=== PATIENT | male | born 1980 | race Caucasian/White ===

== ENCOUNTER 2017-11-01 18:03 | Emergency (ER) | payer BC ==
[2017-11-01 18:46] VITALS: BP 117/85
--- NOTE | 2017-11-01 19:57 | UC ---
Throat Pain/Nasal Daryn HPI - HPI Summary HPI Summary: Pt c/o sinus pressure and pain X 10 days. - History of Current Complaint Chief Complaint: UCGeneralIllness Stated Complaint: SINUS Time Seen by Provider: 11/01/17 19:52 Hx Obtained From: Patient Onset/Duration: Gradual Onset, Lasting Days - 10 Severity: Mild Pain Intensity: 4 Associated Signs & Symptoms: Positive: Sinus Discomfort - Epiglottits Risk Factors Epiglottis Risk Factors: Negative - Allergies/Home Medications Allergies/Adverse Reactions: Allergies Allergy/AdvReac Type Severity Reaction Status Date / Time No Known Allergies Allergy Verified 11/01/17 18:40 Home Medications: Home Medications Insulin Degludec [Tresiba Flextouch U-200] 200 unit SUBCUT DAILY 11/01/17 [ History Confirmed 11/01/17] PMH/Surg Hx/FS Hx/Imm Hx Previously Healthy: Yes Endocrine History: Diabetes - Surgical History Surgical History: Yes Surgery Procedure, Year, and Place: Ankle surgery, 2012. TESTICULAR TORSION 20 YRS AGO - Family History Known Family History: Positive: Cardiac Disease - Social History Occupation: Employed Full-time Lives: With Family Alcohol Use: Occasionally Substance Use Type: None Smoking Status (MU): Never Smoked Tobacco Have You Smoked in the Last Year: No Review of Systems Constitutional: Fatigue Skin: Negative Eyes: Negative ENT: Sinus Congestion, Sinus Pain/Tenderness Respiratory: Negative Cardiovascular: Negative Gastrointestinal: Negative Genitourinary: Negative Motor: Negative Neurovascular: Negative Musculoskeletal: Negative Neurological: Headache Psychological: Negative Is Patient Immunocompromised?: No All Other Systems Reviewed And Are Negative: Yes Physical Exam Triage Information Reviewed: Yes Appearance: Ill-Appearing Vital Signs: Initial Vital Signs Temp 98.2 F 11/01/17 18:38 Pulse 84 11/01/17 18:38 Resp 20 11/01/17 18:38 BP 117/85 11/01/17 18:38 Pulse Ox 99 11/01/17 18:38 Vital Signs Reviewed: Yes Eye Exam: Normal ENT Exam: Other ENT: Positive: Nasal congestion, Sinus tenderness Neck exam: Normal Respiratory Exam: Normal Cardiovascular Exam: Normal Musculoskeletal Exam: Normal Neurological Exam: Normal Psychological Exam: Normal Skin Exam: Normal Throat Pain/Nasal Course/Dx - Differential Dx/Diagnosis Differential Diagnosis/HQI/PQRI: Sinusitis, URI Provider Diagnoses: Sinusitis Discharge - Sign-Out/Discharge Documenting (check all that apply): Discharge - Discharge Plan Condition: Stable Disposition: HOME Prescriptions: Amoxicillin PO (*) [Amoxicillin 875 MG (*)] 875 mg PO Q12H #20 tab Patient Education Materials: Sinusitis (ED) Referrals: Buster Corrales DO [Primary Care Provider] - If Needed - Billing Disposition and Condition Condition: STABLE Disposition: HOME
== END 2017-11-01 20:10 | disposition home or self-care (01) ==
LOC: UCCORT 18:03
DX: J32.9 Chronic sinusitis, unspecified (principal)
CPT/HCPCS: 99212; G0463

== ENCOUNTER 2018-07-29 18:42 | Emergency (ER) | payer BC ==
--- OUTSIDE RECORDS SUMMARY | 2018-07-29 19:05 | XMS REPORT | Continuity of Care Document ---
:1980 External Reference #:[id number] Author Name AntoniEdaew Address [address] [place] [address] Care Team Providers Name Role Phone Buster Corrales Primary Care Physician Unavailable Payers Type Date Identification Numbers Payment Provider Subscriber Policy Number: [id number] [facility] Bret Brooks Group Number: [id number] [address] PayID: [id number] [place] [address] Advance Directives Description No Information Available Problems Date Description Provider Status Onset: 10/13/2005 Benign essential hypertension Michelle Merida MD Active Onset: 10/13/2005 Precordial pain Michelle Merida MD Active Onset: 10/27/2005 Adult health examination Michelle Merida MD Active Onset: 10/27/2005 Allergic rhinitis Michelle Merida MD Active Onset: 08/05/2006 Acute pharyngitis Michelle Merida MD Active Onset: 05/28/2009 Eruption Michelle Merida MD Active Onset: 04/04/2012 Type 2 diabetes mellitus Ramon Harper DO Active Onset: 09/27/2012 Type II diabetes mellitus Ramon Harper DO Active uncontrolled Onset: 09/27/2012 Morbid obesity Ramon Harper DO Active Onset: 04/04/2014 Gout Ramon Harper DO Active Onset: 04/04/2014 Mixed hyperlipidemia Ramon Harper DO Active Onset: 05/22/2014 Disorder of gallbladder Ramon Harper DO Active Onset: 05/22/2014 Obesity Ramon Harper DO Active Onset: 10/16/2014 Pure hypercholesterolemia Chente Oneil DO Active Onset: 07/28/2015 Essential hypertension Chente Oneil DO Active Onset: 08/03/2016 Rosacea Chente Oneil DO Active Family History Date Family Member(s) Problem(s) Comments General Diabetes, Adult General Stroke General Heart Disease Father 50 Father Diabetes, Adult Father Heart Disease Mother 50 Mother Arrythmia ON A BETA MARCELLA Children None Siblings 2 Siblings A&W Paternal Grandfather Hemochromatosis Social History Type Date Description Comments Sex Unknown Education Highest Level Completed, Associated Degree Marital Status Lives With Spouse Diet Healthy, Well Balanced Occupation Cinema Operator [employer] Hand Dominance RIGHT-handed Advance Directive Negative For Health Care Proxy Hobbies Martial Arts Tobacco Use Start: Unknown Never Smoked Cigarettes Smokeless Tobacco Quit - Age 28 PRIOR 7-8 YRS ETOH Use Currently consumes alcohol ETOH Use as Above Enjoy Exercising Enjoys Exercising Enjoy Exercising Runs And Does Martial Arts Frequently Sun Exposure Uses sunscreen Seat Belt/Car Seat always uses seat belt Bike Helmet Always Allergies, Adverse Reactions, Alerts Description No Known Drug Allergies Medications Medication Date Status Form Strength Qnty SIG Indications Ordering Provider Novofine 04/04 Active Misc 30G X 8 100un use as directed Antoni Autoc mm its Buster, DO Rosuvastatin 11/22 Active Tablets 10mg 90tab take 1 tablet E78.2 Antoni s by mouth once Buster, daily DO Tresiba 03/16 Active Solution 200Unit/M 12pen inject 90 units E11.65 Antoni Flextouch Pen-Injec L s subcutaneously claudia Goins at bedtime. DO Please give 3 month supply Metformin HCL 03/12 Active Tablets 1000mg 180ta 1 by mouth E11.65 Antoni bs twice a day DO Buster Syntha 6 10/16 Active 1 Scoop Daily Clarice, (Protein With Water. Chente, Powder) DO Lisinopril 04/18 Active Tablets 30mg 90tab take 1 tablet I10 Antoni s by mouth once Buster, daily DO E11.65 Freestyle Lancets 12/16/2010 Active 1Box test twice a Meredith, day and as DO Ramon needed dx 250.02 Freestyle Lite 12/07/2010 Active 100un test bid and 250. Edinger, Test Strips its prn 00 [facility] Amoxicillin/Clavul 06/15/2017 Hx Tablets 500 20tab 1 by mouth Clarice, anate Potassium - -12 s twice a day Chente, DO 06/25/2017 5mg Metronidazole 10/27/2015 Hx Gel 1% 60gm Apply Thin Film L71. Clarice, - To Face Q Am 9 Chente, DO 06/14/2017 Azithromycin 07/28/2015 Hx Tablets 500 7tabs 1 by mouth Clarice, - mg every day Chente, DO 10/27/2015 Novofine 05/15/2014 Hx Misc 30G 100un use as directed Clarice, - X 8 its Chente, DO 04/04/2018 mm Janumet XR 04/18/2014 Hx Tablets 50- 180ta 1 by mouth Clarice, - ER 24HR 500 bs twice a day Chente DO 03/12/2015 mg Crestor 04/18/2014 Hx Tablets 10m 90tab 1 by mouth E78. Clarice, - g s every day 2 Chente DO 11/22/2016 Atorvastatin 10/29/2012 Hx Tablets 20m 30tab 1 po qd Meredith, Calcium - g s Ramon, DO 04/04/2014 Hydrocortisone 09/27/2012 Hx Ointment 0.1 45gm apply twice a 691. Meredith, Butyrate - % day - 10 8 Ramon, DO 04/04/2014 Metformin HCL ER 08/29/2012 Hx Tablets 100 30tab 1 po qday Meredith , - ER 24HR 0mg s Ramon, DO 08/29/2012 Januvia 08/29/2012 Hx Tablets 100 30tab take 1 tablet Meredith, - mg s by mouth once Ramon, DO 04/18/2014 daily Allopurinol 08/28/2012 Hx Tablets 100 30tab take 1 tablet Meredith, - mg s by mouth once Ramon, DO 04/18/2014 daily Lisinopril 06/06/2012 Hx Tablets 20m 30tab take 1 tablet Meredith, - g s by mouth once Ramon, DO 04/18/2014 daily Out Of Work 01/13/2011 Hx from 01/02-01/05 Samantha, - MD [facility] 04/03/2012 Lisinopril 01/05/2011 Hx Tablets 10m 30tab 1 po qd Laverne Harper g hang Navarro DO 06/06/2012 Allopurinol 12/29/2010 Hx Tablets 100 60tab 2 po qd Meredith, - mg s Ramon, DO 08/28/2012 Lisinopril 12/17/2010 Hx Tablets 5mg 30tab 1 po qd Laverne Singh MD 01/05/2011 Metformin HCL ER 12/07/2010 Hx Tablets 500 60tab Take 1000 250. Meredith, - ER 24HR mg s MG/Day 00 Ramon, DO 08/29/2012 Augmentin 11/11/2010 Hx Tablets 875 20tab 1 po bid Olrich, - -12 s KATH Davis 12/07/2010 5mg Omeprazole 11/01/2010 Hx Capsules 40m 30cap 1 po qd 535. Laverne Singh DR s 00 MD [facility] 04/03/2012 Transderm-Scop 10/29/2010 Hx Patches 1.5 3unit use one patch q 994. Samantha, Laverne 72HR mg s 3 days 6 MD [facility] 11/11/2010 Ondansetron HCL 10/29/2010 Hx Tablets 8mg 8tabs 1 po q12 hrs 994. Samantha, - prn 6 [facility] 11/11/2010 Meclizine HCL 10/13/2010 Hx Tablets 12. 30tab 1-2 tabs q8h 386. Samantha , - 5mg s prn 30 [facility] 11/11/2010 Azithromycin 08/04/2010 Hx Tablets 250 6tabs 2 po qd x 1 day 466. Samantha, - mg then 1 po qd x 0 [facility] 11/11/2010 4 days Doxycycline 12/30/2009 Hx Capsules 100 60cap 1 po bid 601. Steve Oropezaclate - mg s 9 Arpan Sepulveda 11/11/2010 Allopurinol 12/10/2009 Hx Tablets 100 30tab 1 po qd Laverne Singh MD 11/11/2010 Indomethacin 12/04/2009 Hx Capsules 50m 30cap 1 po bid 716. Laverne Singh g s 88 MD [facility] 12/30/2009 Ciprofloxacin HCL 11/24/2009 Hx Tablets 500 60tab 1 po bid 601. Laverne Singh mg s 9 [facility] 12/30/2009 Metronidazole 10/23/2009 Hx Lotion 0.7 59ml apply to 695. Laverne Singh 5% affected area 3 MD [facility] 11/11/2010 bid Famciclovir 05/28/2009 Hx Tablets 500 14tab 1 po bid 782. Fuad, - mg s 1 MD Michelle 12/30/2009 Amoxicillin 01/06/2009 Hx Tablets 875 20tab 1 po bid 462 Fuad, - mg s MD Michelle 05/28/2009 Levitra 12/27/2006 Hx Tablets 10m 6tabs 1-2 PO 15 V41. Laverne Singh g Minutes Prior 7 MD [facility] 01/06/2009 To Sexual Activity. Semen Analysis 11/22/2006 Hx abstain from 401. Laverne Merida ejaculation for 1 MD Michelle 01/06/2009 3D prior to test Fexofenadine 10/02/2006 Hx Tablets 180 90tab 1 po qd 477. Fuad, - mg s 9 MD Michelle 01/06/2009 Augmentin 08/05/2006 Hx Tablets 875 20tab 1 po bid 462 Fuad, - mg s MD Michelle 10/02/2006 Hydrochlorothiazid 05/08/2006 Hx Capsules 12. 90cap 1 tab po qam 401. carla Merida - 5mg s 1 MD Michelle 12/27/2006 Lisinopril 05/08/2006 Hx Tablets 5mg 90tab 1 PO qd 401. Laverne Merida s 1 MD Michelle 01/06/2009 X 11/17/2005 Hx please do Laverne Merida cardiolite MD Michelle 11/17/2005 stress test and fax results to . [id number] pain precordial. Hydrochlorothiazid 10/27/2005 Hx Tablets 50m 30tab 1 po qd 401. Fuad e - g s 1 MD Michelle 05/08/2006 Reanna 10/27/2005 Hx Tablets 180 30tab 1 po qd 477. Fuad, - mg s 9 MD Michelle 10/02/2006 Nasacort Aq 10/27/2005 Hx Suspensio 55m 15ml one spray in 477. Fuad Intranasal [place] - n cg/ each nostril 9 MD Michelle 10/02/2006 Act daily uat ion Whey Protein 10/13/2005 Hx Laverne Merida MD 10/02/2006 Multivitamins 10/13/2005 Hx Tablets 30tab 1 PO qd Laverne Merida MD 01/06/2009 Hydrochlorothiazid 10/13/2005 Hx Tablets 25m 30tab 1 po qd 401. jesús Merida 1 MD Michelle 10/27/2005 Aspirin Enteric 10/13/2005 Hx Tablets 81m 1 PO qd 401. Tabitha Merida 1 MD Michelle 01/06/2009 Lantus Solostar Hx Solution 100 30uni inject Clarice, - Pen-Injec Uni ts subcutaneously Chente, DO 06/16/2016 t t/M 40 units twice L a day Immunizations CPT Code Status Date Vaccine Reaction Lot # [id number] Given 04/24/2018 Flu Vaccine NOS Pt says he got his flu shot at work. 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 [id number] Given 07/01/2014 Fluzone Trivalent Immunization [id number] Given 03/20/2007 Tdap (Adacel) Ages 7 And Above Only 13101 Given 03/20/2007 Tdap (Adacel) Ages 7 And [id number] Above Only Vital Signs Date Vital Result Comment 07/12/2018 8:07am Weight 242.00 lb Heart Rate 80 /min BP Systolic 130 mmHg BP Diastolic 84 mmHg Respiratory Rate 16 /min Height 69.5 inches 5'9.50" BMI (Body Mass Index) 35.2 kg/m2 04/04/2018 8:04am Body Temperature 97.9 F Weight 246.00 lb Heart Rate 82 /min BP Systolic 124 mmHg BP Diastolic 78 mmHg Respiratory Rate 18 /min 12/28/2017 3:53pm Weight 245.00 lb Heart Rate 94 /min BP Systolic 128 mmHg BP Diastolic 82 mmHg Respiratory Rate 17 /min Height 69.5 inches 5'9.50" BMI (Body Mass Index) 35.7 kg/m2 09/27/2017 3:22pm Weight 243.00 lb Heart Rate 86 /min BP Systolic 120 mmHg BP Diastolic 76 mmHg Respiratory Rate 18 /min Height 69.5 inches 5'9.50" BMI (Body Mass Index) 35.4 kg/m2 06/15/2017 8:13am Weight 243.00 lb Heart Rate 80 /min 80 Reg BP Systolic 116 mmHg BP Diastolic 74 mmHg BP Systolic Recheck 112 mmHg BP Diastolic Recheck 78 mmHg Respiratory Rate 18 /min Height 69.5 inches 5'9.50" (08/03/16) BMI (Body Mass Index) 35.4 kg/m2 03/08/2017 11:31am Weight 244.00 lb Heart Rate 80 /min 80 Reg BP Systolic 118 mmHg BP Diastolic 78 mmHg BP Systolic Recheck 110 mmHg BP Diastolic Recheck 78 mmHg Respiratory Rate 18 /min Height 69.5 inches 5'9.50" (08/03/16) BMI (Body Mass Index) 35.5 kg/m2 08/03/2016 10:08am Weight 246.00 lb Heart Rate 78 /min 80 Reg BP Systolic 112 mmHg BP Diastolic 70 mmHg BP Systolic Recheck 112 mmHg BP Diastolic Recheck 72 mmHg Respiratory Rate 18 /min Height 69.5 inches 5'9.50" (08/03/16) BMI (Body Mass Index) 35.8 kg/m2 03/16/2016 9:34am Weight 253.25 lb Heart Rate 72 /min 72 Reg BP Systolic 120 mmHg BP Diastolic 82 mmHg BP Systolic Recheck 120 mmHg BP Diastolic Recheck 82 mmHg Respiratory Rate 18 /min Height 69.25 inches 5'9.25" BMI (Body Mass Index) 37.1 kg/m2 10/27/2015 2:50pm Weight 250.50 lb BP Systolic 114 mmHg BP Diastolic 68 mmHg BP Systolic Recheck 110 mmHg BP Diastolic Recheck 70 mmHg Height 69.25 inches 5'9.25" BMI (Body Mass Index) 36.7 kg/m2 07/28/2015 3:07pm Weight 250.06 lb Heart Rate 72 /min 72 Reg BP Systolic 120 mmHg BP Diastolic 68 mmHg BP Systolic Recheck 120 mmHg BP Diastolic Recheck 70 mmHg Respiratory Rate 18 /min Height 69 inches 10/12 BMI (Body Mass Index) 36.9 kg/m2 03/12/2015 2:02pm Weight 246.00 lb Heart Rate 78 /min 72 Reg BP Systolic 108 mmHg BP Diastolic 68 mmHg BP Systolic Recheck 116 mmHg BP Diastolic Recheck 78 mmHg Respiratory Rate 18 /min 10/16/2014 2:02pm Weight 248.00 lb Heart Rate 78 /min 80 Reg BP Systolic 146 mmHg BP Diastolic 88 mmHg BP Systolic Recheck 130 mmHg BP Diastolic Recheck 84 mmHg Respiratory Rate 18 /min Height 69 inches 5'9" BMI (Body Mass Index) 36.6 kg/m2 05/22/2014 9:42am Body Temperature 96.4 F Weight 233.00 lb Heart Rate 87 /min BP Systolic 112 mmHg BP Diastolic 76 mmHg Respiratory Rate 16 /min Height 70 inches 5'10" BMI (Body Mass Index) 33.4 kg/m2 05/15/2014 2:40pm Body Temperature 98.7 F Weight 234.00 lb Heart Rate 93 /min BP Systolic 118 mmHg BP Diastolic 88 mmHg Respiratory Rate 15 /min Height 70 inches 5'10" BMI (Body Mass Index) 33.6 kg/m2 04/18/2014 9:31am Body Temperature 97.2 F Weight 228.00 lb Heart Rate 63 /min BP Systolic 128 mmHg BP Diastolic 94 mmHg Respiratory Rate 17 /min Height 70 inches 5'10" BMI (Body Mass Index) 32.7 kg/m2 04/04/2014 9:08am Body Temperature 97.0 F Weight 228.00 lb Heart Rate 69 /min BP Systolic 120 mmHg BP Diastolic 78 mmHg Respiratory Rate 16 /min Height 70 inches 5'10" BMI (Body Mass Index) 32.7 kg/m2 09/27/2012 8:19am Body Temperature 98.5 F Weight 247.00 lb Heart Rate 80 /min BP Systolic 130 mmHg BP Diastolic 72 mmHg Respiratory Rate 18 /min Height 70 inches 5'10" BMI (Body Mass Index) 35.4 kg/m2 08/29/2012 2:54pm Body Temperature 98.3 F Weight 246.00 lb Heart Rate 84 /min BP Systolic 110 mmHg BP Diastolic 78 mmHg Respiratory Rate 12 /min Height 70 inches 5'10" BMI (Body Mass Index) 35.3 kg/m2 08/28/2012 10:07am Body Temperature 97.9 F Weight 246.00 lb Heart Rate 80 /min BP Systolic 124 mmHg BP Diastolic 88 mmHg Respiratory Rate 20 /min Height 70 inches 5'10" BMI (Body Mass Index) 35.3 kg/m2 08/21/2012 11:40am Weight 251.00 lb Heart Rate 72 /min BP Systolic 108 mmHg BP Diastolic 82 mmHg Height 70 inches 5'10" BMI (Body Mass Index) 36.0 kg/m2 Glucose Meter 155 ~ 3 Hours 06/06/2012 4:16pm Body Temperature 98.0 F Weight 237.00 lb Heart Rate 90 /min BP Systolic 140 mmHg BP Diastolic 80 mmHg Respiratory Rate 18 /min Height 70 inches 5'10" BMI (Body Mass Index) 34.0 kg/m2 04/04/2012 1:57pm Body Temperature 97.6 F Weight 237.00 lb Heart Rate 68 /min BP Systolic 140 mmHg Both Arms BP Diastolic 86 mmHg Both Arms Respiratory Rate 12 /min Height 70 inches 5'10" BMI (Body Mass Index) 34.0 kg/m2 04/03/2012 11:50am Body Temperature 97.2 F Weight 247.00 lb Heart Rate 80 /min BP Systolic 114 mmHg BP Diastolic 80 mmHg Height 70 inches 5'10" BMI (Body Mass Index) 35.4 kg/m2 Urine Dipstick - Blood NEGATIVE Urine Dipstick - Protein NEGATIVE Urine Dipstick - Glucose NEGATIVE 12/01/2011 2:32pm Weight 241.00 lb Heart Rate 74 /min BP Systolic 122 mmHg BP Diastolic 72 mmHg Height 69.5 inches 5'9.50" BMI (Body Mass Index) 35.1 kg/m2 Glucose Meter 106, ~30Mins pc 04/07/2011 12:05pm Body Temperature 97.8 F Weight 234.00 lb BP Systolic 120 mmHg BP Diastolic 68 mmHg 03/03/2011 12:12am Weight 233.00 lb Heart Rate 92 /min BP Systolic 108 mmHg BP Diastolic 72 mmHg Height 69.5 inches 5'9.50" BMI (Body Mass Index) 33.9 kg/m2 Glucose Meter 110, ~ 1.5 HRS After Lunch. 01/13/2011 12:58pm Weight 237.00 lb BP Systolic 108 mmHg BP Diastolic 70 mmHg Urine Dipstick - Blood TRACE Urine Dipstick - Protein NEGATIVE Urine Dipstick - Glucose NEGATIVE 12/31/2010 9:21am Weight 237.00 lb BP Systolic 118 mmHg BP Diastolic 76 mmHg 12/17/2010 12:02pm Weight 241.00 lb BP Systolic 118 mmHg BP Diastolic 72 mmHg 12/16/2010 1:20pm Weight 240.00 lb Heart Rate 76 /min BP Systolic 106 mmHg BP Diastolic 80 mmHg Height 69.5 inches 5'9.50" BMI (Body Mass Index) 34.9 kg/m2 Glucose Meter 152, 1 HR After Eating. 12/07/2010 9:56am Body Temperature 97.8 F Weight 237.00 lb BP Systolic 128 mmHg BP Diastolic 72 mmHg Height 69.5 inches 5'9.50" BMI (Body Mass Index) 34.5 kg/m2 Urine Dipstick - Blood 3+ Urine Dipstick - Protein 2+ Urine Dipstick - Glucose 3+ Glucose Meter 250 Leuk Negative, Ketones2+ Right Visual Acuity Distance 20/20 Left Visual Acuity Distance 20/20 11/11/2010 2:27pm Body Temperature 98.1 F Weight 230.00 lb Heart Rate 94 /min BP Systolic 126 mmHg BP Diastolic 80 mmHg Height 70 inches 5'10" O2 % BldC Oximetry 95 % BMI (Body Mass Index) 33.0 kg/m2 11/01/2010 12:34pm Body Temperature 98.3 F Weight 251.00 lb BP Systolic 124 mmHg BP Diastolic 80 mmHg 10/29/2010 2:59pm Weight 250.00 lb BP Systolic 118 mmHg BP Diastolic 76 mmHg 10/13/2010 4:24pm Body Temperature 98.1 F Weight 251.31 lb BP Systolic 122 mmHg BP Diastolic 72 mmHg Height 70 inches 5'10" BMI (Body Mass Index) 36.1 kg/m2 03/02/2010 3:38pm Body Temperature 98.7 F Weight 250.00 lb BP Systolic 132 mmHg BP Diastolic 76 mmHg 12/30/2009 9:58am Weight 256.00 lb Heart Rate 70 /min BP Systolic 126 mmHg BP Diastolic 78 mmHg Height 70 inches 5'10" BMI (Body Mass Index) 36.7 kg/m2 12/04/2009 11:47am Body Temperature 98.1 F Weight 250.00 lb BP Systolic 120 mmHg BP Diastolic 80 mmHg 11/24/2009 9:45am Weight 254.00 lb BP Systolic 126 mmHg BP Diastolic 88 mmHg 10/23/2009 9:23am Weight 264.00 lb Heart Rate 64 /min BP Systolic 134 mmHg 120'S-130'S/80'S On Outside. BP Diastolic 100 mmHg 120'S-130'S/80'S On Outside. Height 70 inches 5'10" BMI (Body Mass Index) 37.9 kg/m2 Urine Dipstick - Blood 1+ Urine Dipstick - Protein 1+ Leuko Neg Urine Dipstick - Glucose NEGATIVE Right Visual Acuity Distance 20/20 Left Visual Acuity Distance 20/20 No Corrective Lenses 05/28/2009 4:31pm Body Temperature 98.3 F Weight 258.00 lb BP Systolic 132 mmHg BP Diastolic 72 mmHg 01/06/2009 2:02pm Body Temperature 98.8 F Weight 246.00 lb BP Systolic 120 mmHg BP Diastolic 90 mmHg BP Systolic Recheck 110 mmHg BP Diastolic Recheck 90 mmHg 01/10/2007 3:46pm Weight 216.00 lb Heart Rate 80 /min BP Systolic 108 mmHg BP Diastolic 75 mmHg Height 69 inches 5'9" BMI (Body Mass Index) 31.9 kg/m2 12/27/2006 11:09am Weight 217.00 lb Heart Rate 62 /min BP Systolic 115 mmHg BP Diastolic 82 mmHg Height 69 inches 5'9" BMI (Body Mass Index) 32.0 kg/m2 11/22/2006 12:12pm Weight 219.00 lb Heart Rate 64 /min BP Systolic 107 mmHg BP Diastolic 76 mmHg BP Systolic Recheck 118 mmHg BP Diastolic Recheck 80 mmHg Height 69 inches 5'9" BMI (Body Mass Index) 32.3 kg/m2 10/02/2006 2:00pm Weight 220.00 lb Heart Rate 71 /min BP Systolic 116 mmHg BP Diastolic 74 mmHg BP Systolic Recheck 106 mmHg BP Diastolic Recheck 80 mmHg Height 69 inches 5'9" BMI (Body Mass Index) 32.5 kg/m2 08/05/2006 1:02pm Body Temperature 99.1 F Weight 228.00 lb Heart Rate 76 /min BP Systolic 139 mmHg BP Diastolic 95 mmHg BP Systolic Recheck 110 mmHg BP Diastolic Recheck 90 mmHg Height 69 inches 5'9" BMI (Body Mass Index) 33.7 kg/m2 05/08/2006 11:09am Weight 236.00 lb Heart Rate 68 /min BP Systolic 124 mmHg BP Diastolic 88 mmHg BP Systolic Recheck 114 mmHg BP Diastolic Recheck 94 mmHg Height 69 inches 5'9" BMI (Body Mass Index) 34.8 kg/m2 12/09/2005 11:47am Weight 237.00 lb BP Systolic 120 mmHg BP Diastolic 70 mmHg Height 69 inches 5'9" BMI (Body Mass Index) 35.0 kg/m2 10/27/2005 2:33pm Body Temperature 97.9 F Weight 232.00 lb BP Systolic 120 mmHg BP Diastolic 96 mmHg Height 69 inches 5'9" BMI (Body Mass Index) 34.3 kg/m2 Urine Dipstick - Blood NEGATIVE Urine Dipstick - Protein NEGATIVE Urine Dipstick - Glucose NEGATIVE Right Visual Acuity Distance 20/20 Left Visual Acuity Distance 20/20 10/13/2005 3:45pm Weight 244.00 lb BP Systolic 118 mmHg BP Diastolic 80 mmHg BP Systolic Recheck 130 mmHg BP Diastolic Recheck 100 mmHg Height 69 inches 5'9" BMI (Body Mass Index) 36.0 kg/m2 Results Test Date Facility Test Result H/L Range Note Hemoglobin A1c 07/05/2018 [facility] Hemoglobin A1c 8.3 % High 4.1-5.9 Estimated Average Glucose Calc 192 mg/dL High 71-140 CBC with Auto Diff-fcmg 07/05/2018 [facility] WBC 11.2 K/uL High 4.1-11.0 RBC 5.13 M/uL 4.60-6.10 Hemoglobin 15.7 gm/dL 13.5-18.0 Hematocrit 44.9 % 41.0-53.0 MCV 87.6 fL 80.0-97.0 MCH 30.6 pg 27.0-32.0 MCHC 35.0 g/dL 32.0-36.0 RDW 12.7 % 11.5-14.5 PLT Count 247 K/ul 140-400 MPV 9.7 FL 7.1-10.7 Neutrophil 53.9 % 35.0-75.0 Lymphocyte 35.8 % 16.0-52.0 Monocyte 6.3 % 2.0-10.0 Eosinophil 3.4 % 0.0-5.0 Basophil 0.6 % 0.0-4.0 Abs Neutrophils 6.1 K/uL 2.1-8.0 Abs Lymphocytes 4.0 K/uL 0.8-5.5 Abs Monocytes 0.7 K/uL 0.1-1.0 Abs Eosinophils 0.4 K/uL 0.0-0.5 Abs Basophils 0.1 K/uL 0.0-0.3 Hemoglobin A1c 03/28/2018 [facility] Hemoglobin A1c 7.2 % High 4.1-5.9 Estimated Average Glucose Calc 160 mg/dL High 71-140 Laboratory test finding 03/28/2018 [facility] Uric Acid 7.9 mg/dL 2.6-8.4 CBC with Auto Diff-fcmg 03/28/2018 [facility] WBC 11.3 K/uL High 4.1-11.0 RBC 5.16 M/uL 4.60-6.10 Hemoglobin 15.5 gm/dL 13.5-18.0 Hematocrit 45.3 % 41.0-53.0 MCV 87.8 fL 80.0-97.0 MCH 30.1 pg 27.0-32.0 MCHC 34.3 g/dL 32.0-36.0 RDW 12.9 % 11.5-14.5 PLT Count 229 K/ul 140-400 MPV 9.7 FL 7.1-10.7 Neutrophil 55.9 % 35.0-75.0 Lymphocyte 33.6 % 16.0-52.0 Monocyte 7.0 % 2.0-10.0 Eosinophil 2.5 % 0.0-5.0 Basophil 1.0 % 0.0-4.0 Abs Neutrophils 6.3 K/uL 2.1-8.0 Abs Lymphocytes 3.8 K/uL 0.8-5.5 Abs Monocytes 0.8 K/uL 0.1-1.0 Abs Eosinophils 0.3 K/uL 0.0-0.5 Abs Basophils 0.1 K/uL 0.0-0.3 Basic (BMP) 03/28/2018 [facility] Sodium 138 mmol/L 135-146 1 Potassium 4.2 mmol/L 3.5-5.2 Chloride# 100 mmol/L 97-110 2 Carbon Dioxide 26 mmol/L 24-34 Glucose 88 mg/dL 70-105 BUN 14 mg/dL 6-26 Creatinine 1.1 mg/dL 0.5-1.4 Calcium 10.0 mg/dL 8.5-10.2 Non [place] Egfr >60 >60 3 [place] Egfr >60 >60 4 Anion Gap 12 mmol/L 5-15 5 Laboratory test finding 03/28/2018 [facility] TSH 1.33 uIU/mL 0.35-4.94 Lipid Treatment 03/28/2018 [facility] Cholesterol 128 mg/dL 50-199 Triglycerides 165 mg/dL 30-200 HDL 32 mg/dL 29-71 6 Chol/ HDL Ratio 4.0 ratio 4.0-6.7 VLDL 33 mg/dL High 2-29 LDL (Calc) 63 mg/dL 20-99 7 Alt 24 U/L 3-42 Ast 18 U/L 8-42 Hemoglobin A1c 12/18/2017 [facility] Hemoglobin A1c 9.6 % High 4.1-5.9 Estimated Average Glucose Calc 229 mg/dL High 71-140 Laboratory test 09/21/2017 [facility] Microalbumin, Random 26.7 ug/ml High 0.0-20.0 8 finding Urine Hepatic Panel 09/20/2017 [facility] Total Protein 6.5 g/dL 6.0-8.0 (LFT) Albumin 4.2 g/dL 3.6-4.9 Total Bilirubin 0.8 mg/dL 0.1-1.3 Direct Bilirubin 0.2 mg/dL 0.0-0.4 Alkaline Phosphatase 84 U/L 24-140 Alt 34 U/L 3-42 Ast 21 U/L 8-42 CBC With Auto Diff 09/20/2017 [facility] WBC 9.8 K/uL 4.1-11.0 RBC 5.27 M/uL 4.60-6.10 Hemoglobin 15.9 gm/dL 13.5-18.0 Hematocrit 45.5 % 41.0-53.0 MCV 86.3 fL 80.0-97.0 MCH 30.1 pg 27.0-32.0 MCHC 34.9 g/dL 32.0-36.0 RDW 13.0 % 11.5-14.5 PLT Count 249 K/ul 140-400 MPV 9.5 FL 7.1-10.7 Neutrophil 52.9 % 35.0-75.0 Lymphocyte 37.2 % 16.0-52.0 Monocyte 6.7 % 2.0-10.0 Eosinophil 2.5 % 0.0-5.0 Basophil 0.7 % 0.0-4.0 Abs Neutrophils 5.2 K/uL 2.1-8.0 Abs Lymphocytes 3.6 K/uL 0.8-5.5 Abs Monocytes 0.7 K/uL 0.1-1.0 Abs Eosinophils 0.2 K/uL 0.0-0.5 Abs Basophils 0.1 K/uL 0.0-0.3 Basic (BMP) 09/20/2017 [facility] Sodium 139 mmol/L 135-146 9 Potassium 4.6 mmol/L 3.5-5.2 Chloride# 103 mmol/L 97-110 10 Carbon Dioxide 26 mmol/L 24-34 Glucose 175 mg/dL High 70-105 BUN 20 mg/dL 6-26 Creatinine 1.2 mg/dL 0.5-1.4 Calcium 9.6 mg/dL 8.5-10.2 Non [place] Egfr >60 >60 11 [place] Egfr >60 >60 12 Anion Gap 10 mmol/L 5-15 13 Lipid 09/20/2017 [facility] Cholesterol 129 mg/dL 50-199 Triglycerides 193 mg/dL 30-200 HDL 33 mg/dL 29-71 14 Chol/ HDL Ratio 4.0 ratio 4.0-6.7 VLDL 39 mg/dL High 2-29 LDL (Calc) 58 mg/dL 20-99 15 Laboratory test finding 09/20/2017 [facility] Uric Acid 7.3 mg/dL 2.6-8.4 Hemoglobin A1c 09/20/2017 [facility] Hemoglobin A1c 9.1 % High 4.1-5.9 Estimated Average Glucose Calc 214 mg/dL High 71-140 Laboratory test 06/06/2017 [facility] Microalbumin, Random 23.2 ug/ml High 0.0-20.0 finding Urine Hepatic Panel 06/06/2017 [facility] Total Protein 6.8 g/dL 6.0-8.0 (LFT) Albumin 4.5 g/dL 3.6-4.9 Total Bilirubin 0.6 mg/dL 0.1-1.3 Direct Bilirubin 0.1 mg/dL 0.0-0.4 Alkaline Phosphatase 92 U/L 24-140 Alt 29 U/L 3-42 Ast 18 U/L 8-42 CBC With Auto Diff 06/06/2017 [facility] WBC 14.7 K/uL High 4.1-11.0 RBC 5.32 M/uL 4.60-6.10 Hemoglobin 15.9 gm/dL 13.5-18.0 Hematocrit 46.0 % 41.0-53.0 MCV 86.4 fL 80.0-97.0 MCH 29.9 pg 27.0-32.0 MCHC 34.6 g/dL 32.0-36.0 RDW 12.6 % 11.5-14.5 PLT Count 245 K/ul 140-400 MPV 9.6 FL 7.1-10.7 Neutrophil 63.5 % 35.0-75.0 Lymphocyte 28.4 % 16.0-52.0 Monocyte 6.3 % 2.0-10.0 Eosinophil 1.5 % 0.0-5.0 Basophil 0.3 % 0.0-4.0 Abs Neutrophils 9.3 K/uL High 2.1-8.0 Abs Lymphocytes 4.2 K/uL 0.8-5.5 Abs Monocytes 0.9 K/uL 0.1-1.0 Abs Eosinophils 0.2 K/uL 0.0-0.5 Abs Basophils 0.1 K/uL 0.0-0.3 Basic (BMP) 06/06/2017 [place] Sodium 138 mmol/L 135-146 16 Potassium 4.4 mmol/L 3.5-5.2 Chloride# 98 mmol/L 97-110 17 Carbon Dioxide 29 mmol/L 24-34 Glucose 151 mg/dL High 70-105 Creatinine 0.9 mg/dL 0.5-1.4 Calcium 10.1 mg/dL 8.5-10.2 Non [place] Egfr >60 >60 18 [place] Egfr >60 >60 19 Anion Gap 11 mmol/L 7-16 20 BUN 14 mg/dL 6-26 Lipid 06/06/2017 [place] Cholesterol 130 mg/dL 50-199 Triglycerides 215 mg/dL High 30-150 HDL 32 mg/dL Low 40-71 21 Chol/ HDL Ratio 4.1 ratio 4.0-6.7 VLDL 43 mg/dL High 2-29 LDL (Calc) 55 mg/dL 20-99 22 Laboratory test finding 06/06/2017 [place] Uric Acid 5.5 mg/dL 2.6-8.4 Hemoglobin A1c 06/06/2017 [facility] Hemoglobin A1c 9.2 % High 4.1-6.5 Estimated Average Glucose Calc 217 High 71-140 CBC With Auto Diff 03/01/2017 [facility] WBC 10.3 K/uL 4.1-11.0 RBC 5.24 M/uL 4.60-6.10 Hemoglobin 15.6 gm/dL 13.5-18.0 Hematocrit 45.7 % 41.0-53.0 MCV 87.3 fL 80.0-97.0 MCH 29.8 pg 27.0-32.0 MCHC 34.2 g/dL 32.0-36.0 RDW 13.0 % 11.5-14.5 PLT Count 231 K/ul 140-400 Neutrophil 52.6 % 35.0-75.0 Lymphocyte 37.0 % 16.0-52.0 Monocyte 6.0 % 2.0-10.0 Eosinophil 3.5 % 0.0-5.0 Basophil 0.9 % 0.0-4.0 Abs Neutrophils 5.4 K/uL 2.1-8.0 Abs Lymphocytes 3.8 K/uL 0.8-5.5 Abs Monocytes 0.6 K/uL 0.1-1.0 Abs Eosinophils 0.4 K/uL 0.0-0.5 Abs Basophils 0.1 K/uL 0.0-0.3 Hepatic Panel (LFT) 03/01/2017 [facility] Total Protein 6.7 g/dL 6.0-8.0 Albumin 4.2 g/dL 3.6-4.9 Total Bilirubin 0.5 mg/dL 0.1-1.3 Direct Bilirubin 0.1 mg/dL 0.0-0.4 Alkaline Phosphatase 95 U/L 24-140 Alt 34 U/L 3-42 Ast 20 U/L 8-42 Basic (BMP) 03/01/2017 [facility] Sodium 139 mmol/L 135-146 23 Potassium 4.3 mmol/L 3.5-5.2 Chloride# 102 mmol/L 97-110 24 Carbon Dioxide 29 mmol/L 24-34 Glucose 173 mg/dL High 70-105 BUN 17 mg/dL 6-26 Creatinine 1.1 mg/dL 0.5-1.4 Calcium 9.6 mg/dL 8.5-10.2 Non [place] Egfr >60 >60 25 [place] Egfr >60 >60 26 Anion Gap 8 mmol/L 7-16 27 Lipid 03/01/2017 [facility] Cholesterol 125 mg/dL 50-199 Triglycerides 204 mg/dL High 30-150 HDL 31 mg/dL Low 40-71 28 Chol/ HDL Ratio 4.0 ratio 4.0-6.7 VLDL 41 mg/dL High 2-29 LDL (Calc) 53 mg/dL 20-99 29 Hemoglobin A1c 03/01/2017 [facility] Hemoglobin A1c 9.3 % High 4.1-6.5 Estimated Average Glucose Calc 220 High 71-140 Laboratory test finding 03/01/2017 [facility] Uric Acid 6.6 mg/dL 2.6-8.4 Laboratory test finding 06/10/2016 [facility] Hemoglobin A1c 8.1 % High 4.1- 6.5 Glucose 165 mg/dL High 70-105 Laboratory test 03/02/2016 [facility] Microalbumin, Random 16.8 ug/ml 0.0- 20.0 finding Urine Hemoglobin A1c 8.1 % High 4.1-6.5 Laboratory test finding 03/02/2016 [facility] Uric Acid 7.0 mg/dL 2.6-8.4 Basic (BMP) 03/02/2016 [facility] Sodium 134 mmol/L 134-142 Potassium 4.3 mmol/L 3.5-5.2 Chloride 96 Electrolytes <SEE NOTE> mmol/L Low 97-109 30 Carbon Dioxide 26 mmol/L 24-34 Glucose 194 mg/dL High 70-105 BUN 15 mg/dL 6-26 Creatinine 0.9 mg/dL 0.5-1.4 Calcium 9.6 mg/dL 8.5-10.2 Anion Gap 16 mmol/L High 6-14 Non [place] Egfr >60 >60 31 [place] Egfr >60 >60 32 CBC With Auto Diff 03/02/2016 [place] WBC 13.4 K/uL High 4.1-11.0 RBC 5.46 M/uL 4.60-6.10 Hemoglobin 16.5 gm/dL 13.5-18.0 Hematocrit 47.7 % 41.0-53.0 MCV 87.4 fL 80.0-97.0 MCH 30.3 pg 27.0-32.0 MCHC 34.7 g/dL 32.0-36.0 RDW 13.0 % 11.5-14.5 PLT Count 250 K/ul 140-400 Neutrophil 62.6 % 35.0-75.0 Lymphocyte 28.7 % 16.0-52.0 Monocyte 6.3 % 2.0-10.0 Eosinophil 2.0 % 0.0-5.0 Basophil 0.4 % 0.0-4.0 Abs Neutrophils 8.4 K/uL High 2.1-8.0 Abs Lymphocytes 3.8 K/uL 0.8-5.5 Abs Monocytes 0.8 K/uL 0.1-1.0 Abs Eosinophils 0.3 K/uL 0.0-0.5 Abs Basophils 0.1 K/uL 0.0-0.3 Lipid Treatment 03/02/2016 [facility] Cholesterol 128 mg/dL 50-199 Triglycerides 248 mg/dL High 30-150 HDL 35 mg/dL Low 40-71 33 Chol/ HDL Ratio 3.7 ratio Low 4.0-6.7 VLDL 50 mg/dL High 2-29 LDL (Calc) 43 mg/dL 20-99 34 Alt 43 U/L High 3-42 Ast 28 U/L 8-42 Laboratory test 06/12/2015 [facility] Microalbumin, Random 16.8 ug/ml 0.0- 20.0 finding Urine Hemoglobin A1c 8.4 % High 4.1-6.5 Lipid Treatment 06/12/2015 [facility] Cholesterol 126 mg/dL 50-199 Triglycerides 137 mg/dL 30-150 HDL 33 mg/dL Low 40-71 35 Chol/ HDL Ratio 3.8 ratio Low 4.0-6.7 VLDL 27 mg/dL 2-29 LDL (Calc) 66 mg/dL 20-99 36 Alt 39 U/L 3-42 Ast 22 U/L 8-42 CBC With Auto Diff 06/12/2015 [facility] WBC 12.2 K/uL High 4.1-11.0 RBC 5.24 M/uL 4.60-6.10 Hemoglobin 15.8 gm/dL 13.5-18.0 Hematocrit 45.7 % 41.0-53.0 MCV 87.2 fL 80.0-97.0 MCH 30.1 pg 27.0-32.0 MCHC 34.6 g/dL 32.0-36.0 RDW 12.5 % 11.5-14.5 PLT Count 214 K/ul 140-400 Neutrophil 59.8 % 35.0-75.0 Lymphocyte 30.8 % 16.0-52.0 Monocyte 6.5 % 2.0-10.0 Eosinophil 2.2 % 0.0-5.0 Basophil 0.7 % 0.0-4.0 Abs Neutrophils 7.3 K/uL 2.1-8.0 Abs Lymphocytes 3.8 K/uL 0.8-5.5 Abmon 0.8 K/uL 0.1-1.0 Abs Eosinophils 0.3 K/uL 0.0-0.5 Abs Basophils 0.1 K/uL 0.0-0.3 Basic (BMP) 06/12/2015 [facility] Sodium 137 mmol/L 134-142 Potassium 5.3 No visible h <SEE NOTE> mmol/L High 3.5-5.2 37 Chloride 102 mmol/L 97-109 Carbon Dioxide 29 mmol/L 24-34 Glucose 144 mg/dL High 70-105 BUN 19 mg/dL 6-26 Creatinine 0.9 mg/dL 0.5-1.4 Calcium 9.6 mg/dL 8.5-10.2 Anion Gap 11 mmol/L 6-14 Non [place] Egfr >60 >60 38 [place] Egfr >60 >60 39 Laboratory test finding 06/12/2015 [place] Uric Acid 5.7 mg/dL 2.6-8.4 Laboratory test finding 10/16/2014 [place] Hemoglobin A1c 9.2 % High 4.1- 5.9 Lipid Treatment 10/16/2014 [facility] Cholesterol 152 mg/dL 50-199 Triglycerides 289 mg/dL High 30-150 HDL 32 mg/dL Low 40-71 40 Chol/ HDL Ratio 4.8 ratio 4.0-6.7 VLDL 58 mg/dL High 2-29 LDL (Calc) 62 mg/dL 20-99 41 Alt 36 U/L 3-42 Ast 20 U/L 8-42 CBC With Auto Diff 10/16/2014 [facility] WBC 12.3 K/uL High 4.1-11.0 RBC 5.48 M/uL 4.60-6.10 Hemoglobin 16.6 gm/dL 13.5-18.0 Hematocrit 47.6 % 41.0-53.0 MCV 86.9 fL 80.0-97.0 MCH 30.3 pg 27.0-32.0 MCHC 34.8 g/dL 32.0-36.0 RDW 12.5 % 11.5-14.5 PLT Count 216 K/ul 140-400 Neutrophil 65.1 % 35.0-75.0 Lymphocyte 25.9 % 16.0-52.0 Monocyte 6.4 % 2.0-10.0 Eosinophil 1.9 % 0.0-5.0 Basophil 0.7 % 0.0-4.0 Abs Neutrophils 8.0 K/uL 2.1-8.0 Abs Lymphocytes 3.2 K/uL 0.8-5.5 Abmon 0.8 K/uL 0.1-1.0 Abs Eosinophils 0.2 K/uL 0.0-0.5 Abs Basophils 0.1 K/uL 0.0-0.3 Basic (BMP) 10/16/2014 [facility] Sodium 134 mmol/L 134-142 Potassium 4.5 mmol/L 3.5-5.2 Chloride 97 mmol/L 97-109 Carbon Dioxide 30 mmol/L 24-34 Glucose 252 mg/dL High 70-105 BUN 17 mg/dL 6-26 Creatinine 1.0 mg/dL 0.5-1.4 Calcium 9.8 mg/dL 8.5-10.2 Anion Gap 12 mmol/L 6-14 Non [place] Egfr >60 >60 42 [place] Egfr >60 >60 43 Laboratory test finding 10/16/2014 [facility] Uric Acid 4.9 mg/dL 2.6-8.4 Lipid 05/22/2014 [facility] Cholesterol 125 mg/dL 50-199 Triglycerides 113 mg/dL 30-200 HDL 35 mg/dL 29-71 44 Chol/ HDL Ratio 3.6 ratio Low 4.0-6.7 VLDL 23 mg/dL 2-29 LDL (Calc) 67 mg/dL 20-99 45 Comprehensive Metabolic (CMP) 05/22/2014 [facility] Sodium 135 mmol/L 134- 142 Potassium 4.1 mmol/L 3.5-5.2 Chloride 99 mmol/L 97-109 Carbon Dioxide 28 mmol/L 24-34 Glucose 192 mg/dL High 70-105 BUN 16 mg/dL 6-26 Creatinine 0.9 mg/dL 0.5-1.4 Calcium 9.8 mg/dL 8.5-10.2 Total Protein 6.8 g/dL 6.0-8.0 Albumin 4.6 g/dL 3.6-4.9 Globulin 2.2 g/dL 2.0-3.5 A/G Ratio 2.1 Ratio 1.0-2.2 Total Bilirubin 0.8 mg/dL 0.1-1.3 Alkaline Phosphatase 75 U/L 24-140 Alt 37 U/L 3-42 Ast 21 U/L 8-42 Anion Gap 12 mmol/L 6-14 [place] Egfr >60 >60 46 Non [place] Egfr >60 >60 47 Laboratory test finding 04/04/2014 [facility] Hemoglobin A1c 11.9 % High 4.1 -5.9 CBC With Auto Diff 04/04/2014 [facility] WBC 8.2 K/uL 4.1-11.0 RBC 5.61 M/uL 4.60-6.10 Hemoglobin 17.4 gm/dL 13.5-18.0 Hematocrit 49.3 % 41.0-53.0 MCV 87.9 fL 80.0-97.0 MCH 31.0 pg 27.0-32.0 MCHC 35.3 g/dL 32.0-36.0 RDW 12.7 % 11.5-14.5 PLT Count 215 K/ul 140-400 Neutrophil 54.6 % 35.0-75.0 Lymphocyte 35.6 % 16.0-52.0 Monocyte 7.0 % 2.0-10.0 Eosinophil 2.1 % 0.0-5.0 Basophil 0.7 % 0.0-4.0 Abs Neutrophils 4.5 K/uL 2.1-8.0 Abs Lymphocytes 2.9 K/uL 0.8-5.5 Abmon 0.6 K/uL 0.1-1.0 Abs Eosinophils 0.2 K/uL 0.0-0.5 Abs Basophils 0.1 K/uL 0.0-0.3 Comprehensive Metabolic (CMP) 04/04/2014 [facility] Sodium 131 mmol/L Low 134-142 Potassium 4.8 mmol/L 3.5-5.2 Chloride 99 mmol/L 97-109 Carbon Dioxide 22 mmol/L Low 24-34 48 Glucose 330 mg/dL High 70-105 BUN 15 mg/dL 6-26 Creatinine 0.9 mg/dL 0.5-1.4 Calcium 9.7 mg/dL 8.5-10.2 Total Protein 7.1 g/dL 6.0-8.0 Albumin 4.4 g/dL 3.6-4.9 Globulin 2.7 g/dL 2.0-3.5 A/G Ratio 1.6 Ratio 1.0-2.2 Total Bilirubin 1.0 mg/dL 0.1-1.3 Alkaline Phosphatase 89 U/L 24-140 Alt 53 U/L High 3-42 Ast 33 U/L 8-42 Anion Gap 15 mmol/L High 6-14 [place] Egfr >60 >60 49 Non [place] Egfr >60 >60 50 Lipid 04/04/2014 [facility] Cholesterol 231 mg/dL High 50-199 Triglycerides 306 mg/dL High 30-200 HDL 33 mg/dL 29-71 51 Chol/ HDL Ratio 7.0 ratio High 4.0-6.7 VLDL 61 mg/dL High 2-29 LDL (Calc) 137 mg/dL High 20-99 52 Laboratory test finding 04/04/2014 [facility] TSH 1.12 uIU/mL 0.34-5.60 Uric Acid 5.7 mg/dL 2.6-8.4 Laboratory test finding 09/27/2012 [facility] Hemoglobin A1c 6.8 % High 4.1- 5.9 Lipid 09/27/2012 [facility] Cholesterol 221 mg/dL High 50-199 Triglycerides 183 mg/dL 30-200 HDL 33 mg/dL 29-71 53 Chol/ HDL Ratio 6.7 ratio 4.0-6.7 VLDL 37 mg/dL High 2-29 LDL (Calc) 151 mg/dL High 20-129 54 Non HDL Cholesterol 188 mg/dL High 20-129 55 Comprehensive Metabolic (CMP) 09/27/2012 [facility] Sodium 136 mmol/L 134- 142 Potassium 5.0 mmol/L 3.5-5.2 Chloride 102 mmol/L 97-109 Carbon Dioxide 26 mmol/L 24-34 Glucose 166 mg/dL High 70-105 BUN 19 mg/dL 6-26 Creatinine 1.0 mg/dL 0.5-1.4 Calcium 10.1 mg/dL 8.5-10.2 Total Protein 7.3 g/dL 6.0-8.0 Albumin 4.8 g/dL 3.6-4.9 Globulin 2.5 g/dL 2.0-3.5 A/G Ratio 1.9 Ratio 1.0-2.2 Total Bilirubin 0.9 mg/dL 0.1-1.3 Alkaline Phosphatase 71 U/L 24-140 Alt 71 U/L High 3-42 Ast 37 U/L 8-42 Anion Gap 13 mmol/L 6-14 [place] Egfr >60 >60 56 Non [place] Egfr >60 >60 57 CBC With Auto Diff 09/27/2012 [facility] WBC 8.1 K/uL 4.1-11.0 RBC 5.06 M/uL 4.60-6.10 Hemoglobin 16.6 gm/dL 13.5-18.0 Hematocrit 47.9 % 41.0-53.0 MCV 94.6 fL 80.0-97.0 MCH 32.7 pg High 27.0-32.0 MCHC 34.6 g/dL 32.0-36.0 RDW 12.5 % 11.5-14.5 PLT Count 196 K/ul 140-400 Neutrophil 60.5 % 35.0-75.0 Lymphocyte 30.0 % 16.0-52.0 Monocyte 7.0 % 2.0-10.0 Eosinophil 2.1 % 0.0-5.0 Basophil 0.4 % 0.0-4.0 Abs Neutrophils 4.9 K/uL 2.1-8.0 Abs Lymphocytes 2.4 K/uL 0.8-5.5 Abs Monocytes 0.6 K/uL 0.1-1.0 Abs Eosinophils 0.2 K/uL 0.0-0.5 Abs Basophils 0.0 K/uL 0.0-0.3 Laboratory test finding 09/27/2012 [facility] TSH 0.72 uIU/mL 0.34-5.60 Uric Acid 8.2 mg/dL 2.6-8.4 Lipid 08/29/2012 [facility] Cholesterol 194 mg/dL 50-199 Triglycerides 194 mg/dL 30-200 HDL 31 mg/dL 29-71 58 Chol/ HDL Ratio 6.3 ratio 4.0-6.7 VLDL 39 mg/dL High 2-29 LDL (Calc) 124 mg/dL 20-129 59 Non HDL Cholesterol 163 mg/dL High 20-129 60 Comprehensive Metabolic 08/29/2012 [facility] Sodium 136 Results veri 134- 142 61 (CMP) <SEE NOTE> mmol/L Potassium 4.9 mmol/L 3.5-5.2 Chloride 104 mmol/L 97-109 Carbon Dioxide 20 Extremely [place] <SEE NOTE> mmol/L Low 24-34 62 Glucose 160 mg/dL High 70-105 BUN 19 mg/dL 6-26 Creatinine 1.1 mg/dL 0.5-1.4 Calcium 9.4 mg/dL 8.5-10.2 Total Protein 7.0 g/dL 6.0-8.0 Albumin 4.6 g/dL 3.6-4.9 Globulin 2.4 g/dL 2.0-3.5 A/G Ratio 1.9 Ratio 1.0-2.2 Total Bilirubin 1.0 mg/dL 0.1-1.3 Alkaline Phosphatase 71 U/L 24-140 Alt 90 U/L High 3-42 Ast 44 U/L High 8-42 Anion Gap 17 mmol/L High 6-14 [place] Egfr >60 >60 63 Non [place] Egfr >60 >60 64 Laboratory test finding 08/28/2012 [facility] Uric Acid 6.8 mg/dL 2.6-8.4 Hemoglobin A1c 7.2 % High 4.1-5.9 CBC With Auto Diff 08/28/2012 [facility] WBC 8.1 K/uL 4.1-11.0 RBC 5.00 M/uL 4.60-6.10 Hemoglobin 15.9 gm/dL 13.5-18.0 Hematocrit 47.4 % 41.0-53.0 MCV 94.7 fL 80.0-97.0 MCH 31.8 pg 27.0-32.0 MCHC 33.6 g/dL 32.0-36.0 RDW 12.4 % 11.5-14.5 PLT Count 204 K/ul 140-400 Neutrophil 54.2 % 35.0-75.0 Lymphocyte 36.8 % 16.0-52.0 Monocyte 6.3 % 2.0-10.0 Eosinophil 2.2 % 0.0-5.0 Basophil 0.5 % 0.0-4.0 Abs Neutrophils 4.4 K/uL 2.1-8.0 Abs Lymphocytes 3.0 K/uL 0.8-5.5 Abs Monocytes 0.5 K/uL 0.1-1.0 Abs Eosinophils 0.2 K/uL 0.0-0.5 Abs Basophils 0.0 K/uL 0.0-0.3 Comprehensive Metabolic 08/28/2012 [facility] Sodium 130 Electrolytes <SEE Low 134-142 65 (CMP) NOTE> mmol/L Potassium 4.8 Specimen Sli <SEE NOTE> mmol/L 3.5-5.2 66 Chloride 101 mmol/L 97-109 Carbon Dioxide 27 mmol/L 24-34 Glucose 156 mg/dL High 70-105 BUN 20 mg/dL 6-26 Creatinine 1.0 mg/dL 0.5-1.4 Calcium 9.6 mg/dL 8.5-10.2 Total Protein 7.3 g/dL 6.0-8.0 Albumin 4.7 g/dL 3.6-4.9 Globulin 2.6 g/dL 2.0-3.5 A/G Ratio 1.8 Ratio 1.0-2.2 Total Bilirubin 0.7 mg/dL 0.1-1.3 Alkaline Phosphatase 71 U/L 24-140 Alt 97 Consistent wi <SEE NOTE> U/L High 3-42 67 Ast 51 Consistent wi <SEE NOTE> U/L High 8-42 68 Anion Gap 7 Extremely shor <SEE NOTE> mmol/L 6-14 69 [facility] Egfr >60 >60 70 Non [place] Egfr >60 >60 71 Laboratory test finding 08/28/2012 [facility] Amylase 21 U/L Low 29-103 Lipase 16 U/L 11-82 Microalb/Creat Panel 08/21/2012 [facility] Creatinine, Urine 137.0 mg/dL Microalb/Creat Urine 12.26 ug/mgCreat 0.00-30.00 Microalbumin 16.8 ug/ml 0.0-20.0 Laboratory test 08/21/2012 [facility] 1 Accuchek 155 finding Fingerstick Glucose Comprehensive 05/02/2012 [facility] Sodium 136 mmol/L 134-142 Metabolic (CMP) Potassium 4.8 mmol/L 3.5-5.2 Chloride 102 mmol/L 97-109 Carbon Dioxide 28 mmol/L 24-34 Glucose 173 mg/dL High 70-105 BUN 19 mg/dL 6-26 Creatinine 1.0 mg/dL 0.5-1.4 Calcium 9.3 mg/dL 8.5-10.2 Total Protein 6.9 g/dL 6.0-8.0 Albumin 4.3 g/dL 3.6-4.9 Globulin 2.6 g/dL 2.0-3.5 A/G Ratio 1.7 Ratio 1.0-2.2 Total Bilirubin 0.6 mg/dL 0.1-1.3 Alkaline Phosphatase 63 U/L 24-140 Alt 46 U/L High 3-42 Ast 24 U/L 8-42 Anion Gap 11 mmol/L 6-14 [place] Egfr >60 >60 72 Non [place] Egfr >60 >60 73 Laboratory test finding 05/02/2012 [facility] Uric Acid 6.9 mg/dL 2.6-8.4 Comprehensive Metabolic (CMP) 04/03/2012 [facility] Sodium 135 mmol/L 134- 142 74 Potassium 4.6 mmol/L 3.5-5.2 Chloride 100 mmol/L 97-109 Carbon Dioxide 30 mmol/L 24-34 Glucose 158 mg/dL High 70-105 BUN 15 mg/dL 6-26 Creatinine 0.9 mg/dL 0.5-1.4 Calcium 9.8 mg/dL 8.5-10.2 Total Protein 6.9 g/dL 6.0-8.0 Albumin 4.5 g/dL 3.6-4.9 Globulin 2.4 g/dL 2.0-3.5 A/G Ratio 1.9 Ratio 1.0-2.2 Total Bilirubin 0.6 mg/dL 0.1-1.3 Alkaline Phosphatase 71 U/L 24-140 Alt 99 Results verif <SEE NOTE> U/L High 3-42 75 Ast 49 Results verif <SEE NOTE> U/L High 8-42 76 Anion Gap 10 mmol/L 6-14 [place] Egfr >60 >60 77 Non [place] Egfr >60 >60 78 Laboratory test finding 04/03/2012 [facility] TSH 0.86 uIU/mL 0.34-5.60 CBC With Auto Diff 04/03/2012 [facility] WBC 8.9 K/uL 4.1-11.0 RBC 5.03 M/uL 4.60-6.10 Hemoglobin 16.1 gm/dL 13.5-18.0 Hematocrit 46.8 % 41.0-53.0 MCV 92.9 fL 80.0-97.0 MCH 31.9 pg 27.0-32.0 MCHC 34.4 g/dL 32.0-36.0 RDW 12.8 % 11.5-14.5 PLT Count 201 K/ul 140-400 Neutrophil 58.9 % 35.0-75.0 Lymphocyte 31.8 % 16.0-52.0 Monocyte 6.1 % 2.0-10.0 Eosinophil 2.4 % 0.0-5.0 Basophil 0.8 % 0.0-4.0 Abs Neutrophils 5.2 K/uL 2.1-8.0 Abs Lymphocytes 2.8 K/uL 0.8-5.5 Abs Monocytes 0.5 K/uL 0.1-1.0 Abs Eosinophils 0.2 K/uL 0.0-0.5 Abs Basophils 0.1 K/uL 0.0-0.3 Laboratory test finding 04/03/2012 [facility] Uric Acid 6.0 mg/dL 2.6-8.4 Hemoglobin A1c 6.7 % High 4.1-5.9 Lipid Treatment 12/09/2011 [facility] Cholesterol 206 mg/dL High 50-199 79 Triglycerides 230 mg/dL High 30-200 HDL 34 mg/dL 29-71 80 Chol/ HDL Ratio 6.1 ratio 4.0-6.7 VLDL 46 mg/dL High 2-29 LDL (Calc) 126 mg/dL 20-129 81 Alt 47 U/L High 3-42 Ast 28 U/L 8-42 Laboratory test 12/01/2011 [facility] Hemoglobin A1c 6.0 % High 4.1-5.9 82 finding Laboratory test 12/01/2011 Done [facility] 1 Accuchek 106 finding Fingerstick Glucose Lipid Treatment 08/17/2011 [facility] Cholesterol 182 mg/dL 50-199 83 Triglycerides 221 mg/dL High 10-150 HDL 35 mg/dL 23-92 84 Chol/ HDL Ratio 5.2 ratio 4.0-6.7 VLDL 44 mg/dL High 2-29 LDL (Calc) 103 mg/dL 20-129 85 Alt 27 U/L 7-52 Ast 17 U/L 13-39 Laboratory test 04/07/2011 [facility] Hemoglobin A1c 6.1 % High 4.1-5.9 86 finding Laboratory test 03/03/2011 Done In [facility] 1 Accuchek 110 finding Fingerstick Glucose Laboratory test 01/13/2011 [facility] Uric Acid 5.2 mg/dL 4.8-8.7 87 finding Laboratory test 12/16/2010 Done In [facility] 1 Accuchek 152 finding Fingerstick Glucose Microalb/Creat 12/16/2010 [facility] Microalbumin 229.0 High 0.0-20.0 88 Panel ug/ml Creatinine, Urine 124.0 mg/dL Microalb/Creat Urine 184.68 ug/mgCreat High 0.00-30.00 Laboratory test 12/07/2010 [facility] Urine Culture Microbiology res <SEE 89, 90 finding NOTE> Urinalysis-RL 12/07/2010 [facility] Color YELLOW Appearance CLEAR Spec Grav Urine 1.040 High (1.003-1.030) PH Urine 5.5 (5.0-7.5) Leuk Esterase NEGATIVE (Neg) Nitrite Urine NEGATIVE (Neg) Protein Urine 2+ Abnormal (Neg) Glucose Urine 3+ Abnormal (Neg) Ketone Urine 1+ Abnormal (Neg) Urobilinogen 0.2 mg/dL (0-1.0) Bilirubin Urine NEGATIVE (Neg) Blood/HGB Urine 2+ Abnormal (Neg) Urine WBC 1 /HPF (0-8) Urine RBC 14 /HPF High (0-3) Epithelial Cells NEGATIVE /HPF (Neg) Bacteria 3+ /HPF Abnormal (Neg) Hyaline Casts 3 /LPF (0-5) 91 CBC With Auto Diff 12/07/2010 [facility] WBC 7.9 K/uL 4.1-11.0 92 RBC 5.48 M/uL 4.60-6.10 Hemoglobin 17.1 gm/dL 13.5-18.0 Hematocrit 50.2 % 41.0-53.0 MCV 91.6 fL 80.0-97.0 MCH 31.2 pg 27.0-32.0 MCHC 34.1 g/dL 32.0-36.0 RDW 12.3 % 11.5-14.5 PLT Count 173 K/ul 140-400 Neutrophil 59.1 % 35.0-75.0 Lymphocyte 32.4 % 16.0-52.0 Monocyte 5.6 % 2.0-10.0 Eosinophil 2.4 % 0.0-5.0 Basophil 0.5 % 0.0-4.0 Abs Neutrophils 4.6 K/uL 2.1-8.0 Abs Lymphocytes 2.5 K/uL 0.8-5.5 Abs Monocytes 0.4 K/uL 0.1-1.0 Abs Eosinophils 0.2 K/uL 0.0-0.5 Abs Basophils 0.0 K/uL 0.0-0.3 Comprehensive Metabolic (CMP) 12/07/2010 [facility] Sodium 135 mmol/L 135- 144 Potassium 4.5 mmol/L 3.6-5.2 Chloride 99 mmol/L 97-110 Carbon Dioxide 28 mmol/L 23-32 Glucose 307 mg/dL High 70-105 BUN 16 mg/dL 6-22 Creatinine 0.9 mg/dL 0.5-1.3 Calcium 9.6 mg/dL 8.6-10.2 BUN/CR 18 ratio 12-20 Total Protein 7.0 g/dL 5.8-7.8 Albumin 4.4 g/dL 3.5-4.8 Globulin 2.6 g/dL 2.0-3.5 A/G Ratio 1.7 Ratio 1.0-2.2 Total Bilirubin 0.8 mg/dL 0.3-1.2 Alkaline Phosphatase 89 U/L 24-140 Alt 47 U/L High 5-45 Ast 28 U/L 12-40 Anion Gap 13 mmol/L 8-16 Non [place] Egfr >60 >60 93 [place] Egfr >60 >60 94 Laboratory test finding 12/07/2010 [facility] TSH 1.30 uIU/mL 0.34-5.60 Lipid 12/07/2010 [facility] Cholesterol 258 mg/dL High 50-199 Triglycerides 556 mg/dL High 10-150 HDL 38 mg/dL 29-71 95 Chol/ HDL Ratio 6.8 ratio High 4.0-6.7 Laboratory test finding 12/07/2010 [facility] Hemoglobin A1c 10.1 % High 4.1 -6.6 PSA 1.03 ng/mL 0.00-4.00 96 Direct LDL 152 mg/dL High 20-129 97 HIV 1/2 AB NEGATIVE (Neg) 98 Comprehensive Metabolic 10/03/2010 [facility] Glucose 101 mg/dL 76-115 Panel (315)- - BUN 15 mg/dL 5-23 Creatinine 1.1 mg/dL 0.5-1.4 Glom Filtration Rate, Estimate >60 mL/min >60 If >60 mL/min >60 99 BUN/Creat 13.6 Sodium 140 mEq/L 136-145 Potassium 4.1 mEq/L 3.5-5.1 Chloride 106 mEq/L 98-107 Carbon Dioxide 25 mEq/L 21-32 Anion Gap 13 mEq/L 8-16 Calcium 8.7 mg/dL 8.5-10.1 Total Protein 7.1 g/dL 6.3-8.0 Albumin 3.8 g/dL 3.5-5.0 Globulin 3.3 gm/dL 1.9-4.3 Alb/Glob 1.2 Bilirubin,Total 0.5 mg/dL 0.2-1.2 Sgot/Ast 27 U/L 16-40 SGPT/Alt 53 U/L 30-65 Alkaline Phosphatase 95 U/L 50-136 Laboratory test 10/03/2010 [facility] Troponin-I 0.0 NG/ ML 0.0-0.6 100 finding (315)- - Laboratory test 10/03/2010 [facility] Troponin-I See Note 101 finding (315)- - CBC 10/03/2010 [facility] White Blood 13.1 K/uL High 3.4-10.5 (315)- - Count Red Blood Count 5.56 M/uL 4.20-5.80 Hemoglobin 17.4 gm/dL High 12.8-17.0 Hematocrit 48.7 % High 38.0-48.0 Mean Cell Volume 87.6 fl 80.0-96.0 Mean Corpuscular HGB 31.3 pg 27.0-33.0 Mean Corpuscular HGB Conc 35.7 g/dL 31.7-36.0 Platelet Count 212 K/uL 150-400 Red Cell Distri Width %CV 12.4 % 11.6-15.8 Mean Platelet Volume 11.2 fL High 6.6-10.6 Laboratory test 06/10/2010 [facility] (Do not Use) Uric Acid 8.4 mg/dL 4.8-8.7 102, 103 finding [facility] [place], [place] [id number] [phone] Lipid TX Panel 06/10/2010 [facility] (Do not Use) Ast 38 U/L 12-40 [facility] [place], [place] [id number] [phone] Alt 52 U/L High 5-45 Cholesterol 211 mg/dL High 50-199 Triglycerides 165 mg/dL High 10-150 HDL 32 mg/dL 29- 104 LDL (Calc) 146 mg/dL High 20-129 105 Chol/HDL Ratio 6.6 Ratio 4.0-6.7 106 VLDL 33 mg/dL High 2-29 HSV1/HSV2 12/30/2009 [facility] (Do not Use) HSV1 Glyco 6.90 High 0.00- 0.89 107 Glycoprotein [facility] G Igg -[place] [address] [phone] HSV2 Glyco G Igg -RL 3.46 INDEX High 0.00-0.89 108 Laboratory test 12/04/2009 [facility] (Do not Use) Uric Acid 7.7 mg/dL 4.8-8.7 109 finding [facility] [place] [address] [phone] Lipid TX Panel 11/24/2009 [facility] (Do not Use) Ast 41 U/L High 12-40 110, 111 [facility] [place], [place] [id number] [phone] Alt 66 U/L High 5-45 Cholesterol 221 mg/dL High 50-199 Triglycerides 97 mg/dL 10-150 HDL 31 mg/dL 29- 112 LDL (Calc) 171 mg/dL High 20-129 113 Chol/HDL Ratio 7.1 Ratio High 4.0-6.7 114 VLDL 19 mg/dL 2-29 Laboratory 11/24/2009 [facility] (Do not Use) Hemoglobin A1c 5.5 % 4.1- 6.5 test finding [facility] [place] [address] [phone] Laboratory 10/27/2009 [facility] (Do not Use) H Pylori Stool (SEE NOTE) 115, test finding [facility] Ag - [place] [address] [place] [address] [phone] Chlamydia And 10/23/2009 [facility] (Do not Use) Chlamydia By NEGATIVE Negative 117 GC [facility] [place] [address] [phone] GC By Dna Probe NEGATIVE Negative 118 Laboratory 10/23/2009 [facility] (Do not Use) Syphillis NEGATIVE Neg 119, test finding [facility] Screen,T.Pallidum AB [address] [place] [address] Igg/Igm -LA [phone] Urinalysis 10/23/2009 [facility] (Do not Use) Color -LA YELLOW With [facility] [place] [address] [phone] Appearance -LA CLEAR Specific Granite -LA 1.017 1.003-1.030 PH Urine -LA 7.5 5.0-7.5 Leukocyte Esterase -LA NEGATIVE (Neg) Nitrite -LA NEGATIVE (Neg) Protein Urine-LA TRACE Abnormal (Neg) Glucose Urine -LA NEGATIVE (Neg) Ketone Urine -LA NEGATIVE (Neg) Urobilinogen -LA 0.2 mg/dL 0-1.0 Blood/HGB Urine-RL TRACE Abnormal (Neg) Urine WBC -LA * 10-25 /HPF (0-5) Urine RBC -LA 0-2 /HPF (0-2) Bacteria -LA 1+ /HPF Abnormal Fine Gran Cast N/A /LPF WBC Cast N/A /LPF Bilirubin Urine -LA NEGATIVE (Neg) Epithelial Cells -LA 1+ /HPF Abnormal Mucus -LA 1+ /HPF Abnormal 121 Laboratory test 10/23/2009 [facility] (Do not Use) Cytology (SEE NOTE) 122 finding [facility] [place] [address] Specimen - LA [phone] Laboratory test 10/23/2009 [facility] (Do not Use) Urine Culture NO GROWTH finding [facility] [place] [address] [phone] Laboratory test 10/23/2009 [facility] (Do not Use) HIV 1/2 AB NEGATIVE Neg 123 finding [facility] [place] [address] [phone] CBC With Auto 10/23/2009 [facility] (Do not Use) WBC 10.0 K/ul 4.0- 10.9 Diff [facility] [place] [address] [phone] RBC 5.48 M/ul 4.70-6.10 Hemoglobin 17.6 GM/dl 13.5-18.0 Hematocrit 50.6 % 42.0-52.0 MCV 92.4 FL 80.0-97.0 MCH 32.2 pg High 27.0-31.0 MCHC 34.8 g/dL 32.0-36.0 RDW 12.8 % 11.5-14.5 Platelet Count 196 K/ul 140-440 Neutrophils 64.1 % 50-70 Lymphocytes 25.2 % 20-44 Monocytes 7.8 % 2-9 Eosinophil 2.6 % 0-4 Basophil 0.3 % 0-2 Absolute Neutrophils 6.4 K/ul 2.05-7.63 Absolute Lymphocytes 2.5 K/ul 0.8-4.8 Absolute Monocytes 0.8 K/ul 0.1-1.0 Absolute Eosinophils 0.3 K/ul 0.1-0.5 Absolute Basophils 0.0 K/ul 0.0-0.3 Hematology Comment (Comm2) N/A CMP 10/23/2009 [facility] (Do not Use) Sodium 138 mmol/L 135-144 [facility] [place] [address] [phone] Potassium 4.4 mmol/L 3.6-5.2 Chloride 103 mmol/L 97-110 Carbon Dioxide 28 mmol/L 23-32 Glucose 121 mg/dL High 70-105 BUN 14 mg/dL 6-22 Creatinine 1.1 mg/dL 0.5-1.3 BUN/CR 13 Ratio Calcium 9.8 mg/dL 8.6-10.2 Total Protein 7.0 g/dL 5.8-7.8 Albumin 4.4 g/dL 3.5-4.8 Globulin 2.6 g/dL 2.0-3.5 A/G Ratio 1.7 Ratio 1.0-2.2 Total Bilirubin 1.2 mg/dL 0.3-1.2 Alkaline Phosphatase 83 U/L 24-140 Alt 122 U/L High 5-45 Ast 67 U/L High 12-40 Anion Gap 11 mmol/L 8-16 GFR Calculation > 60 mL/min 60-175 124 GFR For > 60 mL/min 60-175 125 Laboratory test 10/23/2009 [facility] (Do not Use) TSH 1.02 uIU/ml 0.34 -5.60 finding [facility] [place] [address] [phone] Lipid Panel 10/23/2009 [facility] (Do not Use) Cholesterol 198 mg/dL 50 -199 [facility] [place] [address] [phone] Triglycerides 199 mg/dL High 10-150 HDL 36 mg/dL 29-71 126 Chol/HDL Ratio 5.5 Ratio 4.0-6.7 127 VLDL 40 mg/dL High 2-29 LDL (Calc) 122 mg/dL 20-129 128 Hepatitis Profile 10/23/2009 [facility] (Do not Use) Hepatitis B NEGATIVE (Neg) Acute-LA [facility] [place] [address] [phone] Hepatitis B Core Igm - [place] NEGATIVE (Neg) Hepatitis A AB, Igm - [place] NEGATIVE (Neg) Hepatitis C Virus AB, Total - [place] NEGATIVE (Neg) 129 Laboratory test 05/28/2009 [facility] (Do not Use) Herpes Viral (SEE NOTE ) 130, 131 finding [facility] [place] ([place] [address] Dayday)-[place] [phone] Laboratory test 01/06/2009 [facility] (Do not Use) Throat Culture NO BETA 132 finding [facility] [place] [address] <SEE NOTE> ( Laboratory test 12/27/2006 [facility] (Do not Use) Testosterone, 366 ng/ dL 175- 133 finding [facility] Total-LA [address] [place] [address] [phone] Laboratory test 12/09/2005 [facility] (Do not Use) Potassium 3.8 mmol/L 3.6- finding [facility] [address] [place] [address] [phone] 1 Updated reference range on new analyzer 2 Updated reference range on new analyzer 3 Concerning GFR Guidelines: Normal function or mild renal disease, if clinically at risk: >/=60 mL/min Moderately decreased: 30-59 Severely decreased: 15-29 Renal failure: <15 Glomerular Filtration Rate (GFR) is estimated based on the MDRD equation, which assumes a steady state for creatinine as recommended by the National Kidney Disease Education Program in conjunction with the National Institutes of Health and the National Kidney Foundation. Clinical conditions in which it may be necessary to measure GFR by using clearance methods include extremes of age and body size, severe malnutrition or obesity, diseases of skeletal muscle, paraplegia or quadriplegia, vegetarian diet, rapidly changing kidney function, and calculation of the dose of potentially toxic drugs that are excreted by the kidneys. 4 Concerning GFR Guidelines for Americans: Normal function or mild renal disease, if clinically at risk: >/=60 mL/min Moderately decreased: 30-59 Severely decreased: 15-29 Renal failure: <15 5 Updated Reference Range 6 Per NCEP ATP III Guidelines: Results lower than 40 mg/dL are suggestive of increased risk for coronary artery disease. Results > or=to 60 mg/dL are considered a negative risk factor. 7 Per NCEP ATP III Guidelines: Normal Population <130 Patients with medical conditions: CHD/DM Optimal: <100 Borderline high: 130-159 High: 160-189 Very high: >189 8 SCHEDULE 1 WEEK PRIOR TO NEXT VISIT 9 Updated reference range on new analyzer 10 Updated reference range on new analyzer 11 Concerning GFR Guidelines: Normal function or mild renal disease, if clinically at risk: >/=60 mL/min Moderately decreased: 30-59 Severely decreased: 15-29 Renal failure: <15 Glomerular Filtration Rate (GFR) is estimated based on the MDRD equation, which assumes a steady state for creatinine as recommended by the National Kidney Disease Education Program in conjunction with the National Institutes of Health and the National Kidney Foundation. Clinical conditions in which it may be necessary to measure GFR by using clearance methods include extremes of age and body size, severe malnutrition or obesity, diseases of skeletal muscle, paraplegia or quadriplegia, vegetarian diet, rapidly changing kidney function, and calculation of the dose of potentially toxic drugs that are excreted by the kidneys. 12 Concerning GFR Guidelines for Americans: Normal function or mild renal disease, if clinically at risk: >/=60 mL/min Moderately decreased: 30-59 Severely decreased: 15-29 Renal failure: <15 13 Updated Reference Range 14 Per NCEP ATP III Guidelines: Results lower than 40 mg/dL are suggestive of increased risk for coronary artery disease. Results > or=to 60 mg/dL are considered a negative risk factor. 15 Per NCEP ATP III Guidelines: Normal Population <130 Patients with medical conditions: CHD/DM Optimal: <100 Borderline high: 130-159 High: 160-189 Very high: >189 16 Updated reference range on new analyzer 17 Updated reference range on new analyzer 18 Concerning GFR Guidelines: Normal function or mild renal disease, if clinically at risk: >/=60 mL/min Moderately decreased: 30-59 Severely decreased: 15-29 Renal failure: <15 Glomerular Filtration Rate (GFR) is estimated based on the MDRD equation, which assumes a steady state for creatinine as recommended by the National Kidney Disease Education Program in conjunction with the National Institutes of Health and the National Kidney Foundation. Clinical conditions in which it may be necessary to measure GFR by using clearance methods include extremes of age and body size, severe malnutrition or obesity, diseases of skeletal muscle, paraplegia or quadriplegia, vegetarian diet, rapidly changing kidney function, and calculation of the dose of potentially toxic drugs that are excreted by the kidneys. 19 Concerning GFR Guidelines for Americans: Normal function or mild renal disease, if clinically at risk: >/=60 mL/min Moderately decreased: 30-59 Severely decreased: 15-29 Renal failure: <15 20 Updated reference range on new analyzer 21 Per NCEP ATP III Guidelines: Results lower than 40 mg/dL are suggestive of increased risk for coronary artery disease. Results > or=to 60 mg/dL are considered a negative risk factor. 22 Per NCEP ATP III Guidelines: Normal Population <130 Patients with medical conditions: CHD/DM Optimal: <100 Borderline high: 130-159 High: 160-189 Very high: >189 23 Updated reference range on new analyzer 24 Updated reference range on new analyzer 25 Concerning GFR Guidelines: Normal function or mild renal disease, if clinically at risk: >/=60 mL/min Moderately decreased: 30-59 Severely decreased: 15-29 Renal failure: <15 Glomerular Filtration Rate (GFR) is estimated based on the MDRD equation, which assumes a steady state for creatinine as recommended by the National Kidney Disease Education Program in conjunction with the National Institutes of Health and the National Kidney Foundation. Clinical conditions in which it may be necessary to measure GFR by using clearance methods include extremes of age and body size, severe malnutrition or obesity, diseases of skeletal muscle, paraplegia or quadriplegia, vegetarian diet, rapidly changing kidney function, and calculation of the dose of potentially toxic drugs that are excreted by the kidneys. 26 Concerning GFR Guidelines for Americans: Normal function or mild renal disease, if clinically at risk: >/=60 mL/min Moderately decreased: 30-59 Severely decreased: 15-29 Renal failure: <15 27 Updated reference range on new analyzer 28 Per NCEP ATP III Guidelines: Results lower than 40 mg/dL are suggestive of increased risk for coronary artery disease. Results > or=to 60 mg/dL are considered a negative risk factor. 29 Per NCEP ATP III Guidelines: Normal Population <130 Patients with medical conditions: CHD/DM Optimal: <100 Borderline high: 130-159 High: 160-189 Very high: >189 30 96 Electrolytes confirmed by repeat. 31 Concerning GFR Guidelines: Normal function or mild renal disease, if clinically at risk: >/=60 mL/min Moderately decreased: 30-59 Severely decreased: 15-29 Renal failure: <15 Glomerular Filtration Rate (GFR) is estimated based on the MDRD equation, which assumes a steady state for creatinine as recommended by the National Kidney Disease Education Program in conjunction with the National Institutes of Health and the National Kidney Foundation. Clinical conditions in which it may be necessary to measure GFR by using clearance methods include extremes of age and body size, severe malnutrition or obesity, diseases of skeletal muscle, paraplegia or quadriplegia, vegetarian diet, rapidly changing kidney function, and calculation of the dose of potentially toxic drugs that are excreted by the kidneys. 32 Concerning GFR Guidelines for Americans: Normal function or mild renal disease, if clinically at risk: >/=60 mL/min Moderately decreased: 30-59 Severely decreased: 15-29 Renal failure: <15 33 Per NCEP ATP III Guidelines: Results lower than 40 mg/dL are suggestive of increased risk for coronary artery disease. Results > or=to 60 mg/dL are considered a negative risk factor. 34 Per NCEP ATP III Guidelines: Normal Population <130 Patients with medical conditions: CHD/DM Optimal: <100 Borderline high: 130-159 High: 160-189 Very high: >189 35 Per NCEP ATP III Guidelines: Results lower than 40 mg/dL are suggestive of increased risk for coronary artery disease. Results > or=to 60 mg/dL are considered a negative risk factor. 36 Per NCEP ATP III Guidelines: Normal Population <130 Patients with medical conditions: CHD/DM Optimal: <100 Borderline high: 130-159 High: 160-189 Very high: >189 37 5.3 No visible hemolysis. 38 Concerning GFR Guidelines: Normal function or mild renal disease, if clinically at risk: >/=60 mL/min Moderately decreased: 30-59 Severely decreased: 15-29 Renal failure: <15 Glomerular Filtration Rate (GFR) is estimated based on the MDRD equation, which assumes a steady state for creatinine as recommended by the National Kidney Disease Education Program in conjunction with the National Institutes of Health and the National Kidney Foundation. Clinical conditions in which it may be necessary to measure GFR by using clearance methods include extremes of age and body size, severe malnutrition or obesity, diseases of skeletal muscle, paraplegia or quadriplegia, vegetarian diet, rapidly changing kidney function, and calculation of the dose of potentially toxic drugs that are excreted by the kidneys. 39 Concerning GFR Guidelines for Americans: Normal function or mild renal disease, if clinically at risk: >/=60 mL/min Moderately decreased: 30-59 Severely decreased: 15-29 Renal failure: <15 40 Per NCEP ATP III Guidelines: Results lower than 40 mg/dL are suggestive of increased risk for coronary artery disease. Results > or=to 60 mg/dL are considered a negative risk factor. 41 Per NCEP ATP III Guidelines: Normal Population <130 Patients with medical conditions: CHD/DM Optimal: <100 Borderline high: 130-159 High: 160-189 Very high: >189 42 Concerning GFR Guidelines: Normal function or mild renal disease, if clinically at risk: >/=60 mL/min Moderately decreased: 30-59 Severely decreased: 15-29 Renal failure: <15 Glomerular Filtration Rate (GFR) is estimated based on the MDRD equation, which assumes a steady state for creatinine as recommended by the National Kidney Disease Education Program in conjunction with the National Institutes of Health and the National Kidney Foundation. Clinical conditions in which it may be necessary to measure GFR by using clearance methods include extremes of age and body size, severe malnutrition or obesity, diseases of skeletal muscle, paraplegia or quadriplegia, vegetarian diet, rapidly changing kidney function, and calculation of the dose of potentially toxic drugs that are excreted by the kidneys. 43 Concerning GFR Guidelines for Americans: Normal function or mild renal disease, if clinically at risk: >/=60 mL/min Moderately decreased: 30-59 Severely decreased: 15-29 Renal failure: <15 44 Per NCEP ATP III Guidelines: Results lower than 40 mg/dL are suggestive of increased risk for coronary artery disease. Results > or=to 60 mg/dL are considered a negative risk factor. 45 Per NCEP ATP III Guidelines: Normal Population <130 Patients with medical conditions: CHD/DM Optimal: <100 Borderline high: 130-159 High: 160-189 Very high: >189 46 Concerning GFR Guidelines for Americans: Normal function or mild renal disease, if clinically at risk: >/=60 mL/min Moderately decreased: 30-59 Severely decreased: 15-29 Renal failure: <15 47 Concerning GFR Guidelines: Normal function or mild renal disease, if clinically at risk: >/=60 mL/min Moderately decreased: 30-59 Severely decreased: 15-29 Renal failure: <15 Glomerular Filtration Rate (GFR) is estimated based on the MDRD equation, which assumes a steady state for creatinine as recommended by the National Kidney Disease Education Program in conjunction with the National Institutes of Health and the National Kidney Foundation. Clinical conditions in which it may be necessary to measure GFR by using clearance methods include extremes of age and body size, severe malnutrition or obesity, diseases of skeletal muscle, paraplegia or quadriplegia, vegetarian diet, rapidly changing kidney function, and calculation of the dose of potentially toxic drugs that are excreted by the kidneys. 48 Extremely short draw 49 Concerning GFR Guidelines for Americans: Normal function or mild renal disease, if clinically at risk: >/=60 mL/min Moderately decreased: 30-59 Severely decreased: 15-29 Renal failure: <15 50 Concerning GFR Guidelines: Normal function or mild renal disease, if clinically at risk: >/=60 mL/min Moderately decreased: 30-59 Severely decreased: 15-29 Renal failure: <15 Glomerular Filtration Rate (GFR) is estimated based on the MDRD equation, which assumes a steady state for creatinine as recommended by the National Kidney Disease Education Program in conjunction with the National Institutes of Health and the National Kidney Foundation. Clinical conditions in which it may be necessary to measure GFR by using clearance methods include extremes of age and body size, severe malnutrition or obesity, diseases of skeletal muscle, paraplegia or quadriplegia, vegetarian diet, rapidly changing kidney function, and calculation of the dose of potentially toxic drugs that are excreted by the kidneys. 51 Per NCEP ATP III Guidelines: Results lower than 40 mg/dL are suggestive of increased risk for coronary artery disease. Results > or=to 60 mg/dL are considered a negative risk factor. 52 Per NCEP ATP III Guidelines: Normal Population <130 Patients with medical conditions: CHD/DM Optimal: <100 Borderline high: 130-159 High: 160-189 Very high: >189 53 Per NCEP ATP III Guidelines: Results lower than 40 mg/dL are suggestive of increased risk for coronary artery disease. Results > or=to 60 mg/dL are considered a negative risk factor. 54 Per NCEP ATP III Guidelines: Optimal: <100 Near optimal: 100-129 Borderline high: 130-159 High: 160-189 Very high: >189 55 Desirable: <130 Borderline High: 130-159 High: 160-189 Very high: 190 or greater 56 Concerning GFR Guidelines for Americans: Normal function or mild renal disease, if clinically at risk: >/=60 mL/min Moderately decreased: 30-59 Severely decreased: 15-29 Renal failure: <15 57 Concerning GFR Guidelines: Normal function or mild renal disease, if clinically at risk: >/=60 mL/min Moderately decreased: 30-59 Severely decreased: 15-29 Renal failure: <15 Glomerular Filtration Rate (GFR) is estimated based on the MDRD equation, which assumes a steady state for creatinine as recommended by the National Kidney Disease Education Program in conjunction with the National Institutes of Health and the National Kidney Foundation. Clinical conditions in which it may be necessary to measure GFR by using clearance methods include extremes of age and body size, severe malnutrition or obesity, diseases of skeletal muscle, paraplegia or quadriplegia, vegetarian diet, rapidly changing kidney function, and calculation of the dose of potentially toxic drugs that are excreted by the kidneys. 58 Per NCEP ATP III Guidelines: Results lower than 40 mg/dL are suggestive of increased risk for coronary artery disease. Results > or=to 60 mg/dL are considered a negative risk factor. 59 Per NCEP ATP III Guidelines: Optimal: <100 Near optimal: 100-129 Borderline high: 130-159 High: 160-189 Very high: >189 60 Desirable: <130 Borderline High: 130-159 High: 160-189 Very high: 190 or greater 61 136 Results verified by repeat analysis 62 20 Extremely short draw 63 Concerning GFR Guidelines for Americans: Normal function or mild renal disease, if clinically at risk: >/=60 mL/min Moderately decreased: 30-59 Severely decreased: 15-29 Renal failure: <15 64 Concerning GFR Guidelines: Normal function or mild renal disease, if clinically at risk: >/=60 mL/min Moderately decreased: 30-59 Severely decreased: 15-29 Renal failure: <15 Glomerular Filtration Rate (GFR) is estimated based on the MDRD equation, which assumes a steady state for creatinine as recommended by the National Kidney Disease Education Program in conjunction with the National Institutes of Health and the National Kidney Foundation. Clinical conditions in which it may be necessary to measure GFR by using clearance methods include extremes of age and body size, severe malnutrition or obesity, diseases of skeletal muscle, paraplegia or quadriplegia, vegetarian diet, rapidly changing kidney function, and calculation of the dose of potentially toxic drugs that are excreted by the kidneys. 65 130 Electrolytes confirmed by repeat. 66 4.8 Specimen Slightly Hemolyzed 67 97 Consistent with previous result(s). 68 51 Consistent with previous result(s). 69 7 Extremely short draw 70 Concerning GFR Guidelines for Americans: Normal function or mild renal disease, if clinically at risk: >/=60 mL/min Moderately decreased: 30-59 Severely decreased: 15-29 Renal failure: <15 71 Concerning GFR Guidelines: Normal function or mild renal disease, if clinically at risk: >/=60 mL/min Moderately decreased: 30-59 Severely decreased: 15-29 Renal failure: <15 Glomerular Filtration Rate (GFR) is estimated based on the MDRD equation, which assumes a steady state for creatinine as recommended by the National Kidney Disease Education Program in conjunction with the National Institutes of Health and the National Kidney Foundation. Clinical conditions in which it may be necessary to measure GFR by using clearance methods include extremes of age and body size, severe malnutrition or obesity, diseases of skeletal muscle, paraplegia or quadriplegia, vegetarian diet, rapidly changing kidney function, and calculation of the dose of potentially toxic drugs that are excreted by the kidneys. 72 Concerning GFR Guidelines for Americans: Normal function or mild renal disease, if clinically at risk: >/=60 mL/min Moderately decreased: 30-59 Severely decreased: 15-29 Renal failure: <15 73 Concerning GFR Guidelines: Normal function or mild renal disease, if clinically at risk: >/=60 mL/min Moderately decreased: 30-59 Severely decreased: 15-29 Renal failure: <15 Glomerular Filtration Rate (GFR) is estimated based on the MDRD equation, which assumes a steady state for creatinine as recommended by the National Kidney Disease Education Program in conjunction with the National Institutes of Health and the National Kidney Foundation. Clinical conditions in which it may be necessary to measure GFR by using clearance methods include extremes of age and body size, severe malnutrition or obesity, diseases of skeletal muscle, paraplegia or quadriplegia, vegetarian diet, rapidly changing kidney function, and calculation of the dose of potentially toxic drugs that are excreted by the kidneys. 74 ADDED PER TRIAGE [id number] This sample is drawn by:ts. 75 99 Results verified by repeat analysis 76 49 Results verified by repeat analysis 77 Concerning GFR Guidelines for Americans: Normal function or mild renal disease, if clinically at risk: >/=60 mL/min Moderately decreased: 30-59 Severely decreased: 15-29 Renal failure: <15 78 Concerning GFR Guidelines: Normal function or mild renal disease, if clinically at risk: >/=60 mL/min Moderately decreased: 30-59 Severely decreased: 15-29 Renal failure: <15 Glomerular Filtration Rate (GFR) is estimated based on the MDRD equation, which assumes a steady state for creatinine as recommended by the National Kidney Disease Education Program in conjunction with the National Institutes of Health and the National Kidney Foundation. Clinical conditions in which it may be necessary to measure GFR by using clearance methods include extremes of age and body size, severe malnutrition or obesity, diseases of skeletal muscle, paraplegia or quadriplegia, vegetarian diet, rapidly changing kidney function, and calculation of the dose of potentially toxic drugs that are excreted by the kidneys. 79 This sample is drawn by:MARISN 80 Per NCEP ATP III Guidelines: Results lower than 40 mg/dL are suggestive of increased risk for coronary artery disease. Results > or=to 60 mg/dL are considered a negative risk factor. 81 Per NCEP ATP III Guidelines: Optimal: <100 Near optimal: 100-129 Borderline high: 130-159 High: 160-189 Very high: >189 82 This sample is drawn by:BF 83 This sample is drawn by:WW 84 Per NCEP ATP III Guidelines: Results lower than 40 mg/dL are suggestive of increased risk for coronary artery disease. Results > or=to 60 mg/dL are considered a negative risk factor. 85 Per NCEP ATP III Guidelines: Optimal: <100 Near optimal: 100-129 Borderline high: 130-159 High: 160-189 Very high: >189 86 This sample is drawn by:LYN. 87 drawn by LYN 88 This sample is drawn by:MIGUEL 89 This sample is drawn by:audrey 90 Microbiology results SOURCE URINE RESULT No growth 91 Unless otherwise specified, testing performed by [facility] [place] [facility] [address] [place] [id number] This sample is drawn by:LYN This sample is drawn by:LYN 93 Concerning GFR Guidelines: Normal function or mild renal disease, if clinically at risk: >/=60 mL/min Moderately decreased: 30-59 Severely decreased: 15-29 Renal failure: <15 Glomerular Filtration Rate (GFR) is estimated based on the MDRD equation, which assumes a steady state for creatinine as recommended by the National Kidney Disease Education Program in conjunction with the National Institutes of Health and the National Kidney Foundation. Clinical conditions in which it may be necessary to measure GFR by using clearance methods include extremes of age and body size, severe malnutrition or obesity, diseases of skeletal muscle, paraplegia or quadriplegia, vegetarian diet, rapidly changing kidney function, and calculation of the dose of potentially toxic drugs that are excreted by the kidneys. 94 Concerning GFR Guidelines for Americans: Normal function or mild renal disease, if clinically at risk: >/=60 mL/min Moderately decreased: 30-59 Severely decreased: 15-29 Renal failure: <15 95 Per NCEP ATP III Guidelines: Results lower than 40 mg/dL are suggestive of increased risk for coronary artery disease. Results > or=to 60 mg/dL are considered a negative risk factor. 96 Beginning 09/25/06 PSA values assayed at [facility] uses an EIA methodology manufactured by [employer] for use on the DXI analyzer. Values obtained with different assay methods or kits can not be used interchangeably. Serum PSA measurement is not an absolute test for malignancy. The PSA value should be used in conjunction with information available from clinical evaluation and other diagnostic procedures. 97 Per NCEP ATP III Guidelines: Optimal: <100 Near optimal: 100-129 Borderline high: 130-159 High: 160-189 Very high: >189 98 THIS INFORMATION HAS BEEN DISCLOSED TO YOU FROM CONFIDENTIAL RECORDS WHICH ARE PROTECTED BY STATE LAW. STATE LAW PROHIBITS YOU FROM MAKING ANY FURTHER DISCLOSURE OF THIS INFORMATION WITHOUT THE SPECIFIC WRITTEN CONSENT OF THE PERSON TO WHOM IT PERTAINS, OR OTHERWISE PERMITTED BY LAW. Unless otherwise specified, testing performed by [facility] [address] [place] [id number] Note: Persistent reduction for 3 months or more in an eGFR <60 mL/min/1.73 m2 defines CKD. Patients with eGFR values >/=60 mL/min/1.73 m2 may also have CKD if evidence of persistent proteinuria is present. The original MDRD equation for estimated GFR is not valid for patients less than 18 years of age. Additional information may be found at [email or web address]. 100 0 - 0.6 NG/ML: NO EVIDENCE OF MYOCARDIAL INJURY 0.7 - 1.5 NG/ML: MILD ELEVATION, SUGGESTING POSSIBLE MYOCARDIAL INJURY > 1.5 NG/ML: CONSISTENT WITH MYOCARDIAL INJURY 101 DUPLICATE SPECIMEN, CANCELLED PER DUPLICATE SPECIMEN POLICY. 102 FASTING 12 HOUR This sample is drawn by:TS. 103 SLT HEMOLYSIS 104 PER NCEP ATP III GUIDELINES: RESULTS LOWER THAN 40 MG/DL ARE SUGGESTIVE OF INCREASED RISK FOR CORONARY ARTERY DISEASE. RESULTS > OR=TO 60 MG/DL ARE CONSIDERED A NEGATIVE RISK FACTOR. 105 PER NCEP ATP III GUIDELINES: OPTIMAL: <100 NEAR OPTIMAL: 100 - 129 BORDERLINE HIGH: 130 - 159 HIGH: 160 - 189 VERY HIGH: >189 106 INTERPRETATION OF CHOL-HDL RATIO CHD RISK FEMALE MALE VERY HIGH >8.3 >14.3 HIGH 5.6 - 8.3 6.7 - 14.3 AVERAGE 3.7 - 5.6 4.0 - 6.7 BELOW AVERAGE 2.5 - 3.7 2.7 - 4.0 PROTECTED <2.5 <2.7 107 INTERPRETATION OF RESULT < 0.90 NEGATIVE 0.90-1.10 EQUIVOCAL - repeat testing in 4-12 weeks may be helpful. > 1.10 POSITIVE PLEASE NOTE: Individuals infected with HSV may not exhibit detectable IgG antibody to glycoprotein G in the early stages of infection and 5-10% of infections may occur with glycoprotein G deficient virus. Detection of antibody presence in these cases may only be possible using a non-type specific screening test. NOTE: HSV serology cannot be interpreted in infants less than 60 days old. 108 INTERPRETATION OF RESULT < 0.90 NEGATIVE 0.90-1.10 EQUIVOCAL - repeat testing in 4-12 weeks may be helpful. > 1.10 POSITIVE PLEASE NOTE: Individuals infected with HSV may not exhibit detectable IgG antibody to glycoprotein G in the early stages of infection and 5-10% of infections may occur with glycoprotein G deficient virus. Detection of antibody presence in these cases may only be possible using a non-type specific screening test. NOTE: HSV serology cannot be interpreted in infants less than 60 days old. Unless otherwise specified, testing performed by [facility] [address] [address] 109 This sample is drawn by:TS. 110 This sample is drawn by:SS 111 The difference between the most recent result of 67 and the current result of 41 exceeds the absolute delta value of 15 as defined for this test. 112 PER NCEP ATP III GUIDELINES: RESULTS LOWER THAN 40 MG/DL ARE SUGGESTIVE OF INCREASED RISK FOR CORONARY ARTERY DISEASE. RESULTS > OR=TO 60 MG/DL ARE CONSIDERED A NEGATIVE RISK FACTOR. 113 PER NCEP ATP III GUIDELINES: OPTIMAL: <100 NEAR OPTIMAL: 100 - 129 BORDERLINE HIGH: 130 - 159 HIGH: 160 - 189 VERY HIGH: >189 114 INTERPRETATION OF CHOL-HDL RATIO CHD RISK FEMALE MALE VERY HIGH >8.3 >14.3 HIGH 5.6 - 8.3 6.7 - 14.3 AVERAGE 3.7 - 5.6 4.0 - 6.7 BELOW AVERAGE 2.5 - 3.7 2.7 - 4.0 PROTECTED <2.5 <2.7 115 This sample is drawn by: PER JJ 116 SPECIMEN DESCRIPTION STOOL RESULT NEGATIVE FOR H. PYLORI ANTIGEN BY EIA REPORT STATUS FINAL 10/30/2009 Unless otherwise specified, testing performed by [facility] [address] [address] 117 SOURCE: SWAB 118 SOURCE: SWAB 119 FASTING 12 HOUR 120 Unless otherwise specified, testing performed by [facility] [address] [address] 121 Unless otherwise specified, testing performed by [facility] [address] [address] 122 [facility]. [address] [place] [id number] MISCELLANEOUS CYTOLOGY REPORT Accession Number: [id number] Source of Specimen(s): A: Urine, Voided Clinical Diagnosis and History: Microhematuria Gross Description: Urine, Voided: 30cc clear yellow fluid. Final Diagnosis: Specimen Adequacy Satisfactory Final Diagnosis NEGATIVE FOR MALIGNANCY Neutrophils and lymphocytes with scattered benign urothelial cells, squamous cells and red blood cells. Reported: 10/26/2009 Electronically Signed Out By Curtis Sanchez MD Medical Claims Assistant: Maureen CHISHOLM([facility]) [facility], [facility] ICD9 Code: 599.7 Unless otherwise specified, testing performed by [facility] [place] [address] 123 THIS INFORMATION HAS BEEN DISCLOSED TO YOU FROM CONFIDENTIAL RECORDS WHICH ARE PROTECTED BY STATE LAW. STATE LAW PROHIBITS YOU FROM MAKING ANY FURTHER DISCLOSURE OF THIS INFORMATION WITHOUT THE SPECIFIC WRITTEN CONSENT OF THE PERSON TO WHOM IT PERTAINS, OR OTHERWISE PERMITTED BY LAW. Unless otherwise specified, testing performed by [facility] [address] [place] [address] 124 Concerning GFR GUIDELINES: Normal Function or Mild Renal Disease, if clinically at risk: >/=60mL/min Moderately decreased: 30-59 Severely decreased: 15-29 Renal Failure: <15 Glomerular Filtration Rate (GFR) is estimated based on the MDRD equation, which assumes a steady state for creatinine as recommended by the National Kidney Disease Education Program in conjunction with the National Institutes of Health and the National Kidney Foundation. Clinical conditions in which it may be necessary to measure GFR by using clearance methods include extremes of age and body size, severe malnutrition or obesity, diseases of skeletal muscle, paraplegia or quadriplegia, vegetarian diet, rapidly changing kidney function, and calculation of the dose of potentially toxic drugs that are excreted by the kidneys. 125 Concerning GFR GUIDELINES: Normal Function or Mild Renal Disease, if clinically at risk: >/=60mL/min Moderately decreased: 30-59 Severely decreased: 15-29 Renal Failure: <15 126 PER NCEP ATP III GUIDELINES: RESULTS LOWER THAN 40 MG/DL ARE SUGGESTIVE OF INCREASED RISK FOR CORONARY ARTERY DISEASE. RESULTS > OR=TO 60 MG/DL ARE CONSIDERED A NEGATIVE RISK FACTOR. 127 INTERPRETATION OF CHOL-HDL RATIO CHD RISK FEMALE MALE VERY HIGH >8.3 >14.3 HIGH 5.6 - 8.3 6.7 - 14.3 AVERAGE 3.7 - 5.6 4.0 - 6.7 BELOW AVERAGE 2.5 - 3.7 2.7 - 4.0 PROTECTED <2.5 <2.7 128 PER NCEP ATP III GUIDELINES: OPTIMAL: <100 NEAR OPTIMAL: 100 - 129 BORDERLINE HIGH: 130 - 159 HIGH: 160 - 189 VERY HIGH: >189 129 NOT INFECTED WITH HCV, UNLESS RECENT INFECTION IS SUSPECTED OR OTHER EVIDENCE EXISTS TO INDICATE HCV INFECTION. Unless otherwise specified, testing performed by [facility] [address] [place] [address] 130 This sample is drawn by: PER JJ 131 SPECIMEN DESCRIPTION GENITAL SPECIAL REQUESTS NONE CULTURE RESULTS NO HERPES SIMPLEX VIRUS ISOLATED. REPORT STATUS FINAL 06/01/2009 Unless otherwise specified, testing performed by [facility] [place] [address] 132 NO BETA HEMOLYTIC STREPTOCOCCI ISOLATED 133 PLEASE NOTE: REFERENCE RANGE IS GENDER SPECIFIC FOR ADULTS ONLY. AGE/KEITH STAGE APPROPRIATE REFERENCE RANGES HAVE NOT BEEN ESTABLISHED FOR THIS METHODOLOGY. Procedures Date Code Description Status 05/22/2014 09530 Electrocardiogram Complete Completed 12/07/2010 94744 Visual Screening Test Completed 12/07/2010 27126 Electrocardiogram Complete Completed 12/07/2010 59559 Screening Hearing Test Completed 10/23/2009 96315 Visual Screening Test Completed 10/23/2009 41603 Electrocardiogram Complete Completed 10/23/2009 03437 Screening Hearing Test Completed 06/23/2008 08035 X-Ray Spine Lumbosacral Ap & Lateral Completed 06/23/2008 62763 X-Ray Spine Thoracic Ap & Lateral, 2 Views Completed 06/23/2008 28431 X-Ray Spine Cervical, 6 Or More Views Completed Encounters Type Date Location Provider Dx Diagnosis Office Visit 04/04/2018 [facility] Buster Corrales DO E11.65 Type 2 diabetes 8:00a mellitus with hyperglycemia I10 Essential (primary) hypertension M10.9 Gout, unspecified E78.2 Mixed hyperlipidemia K76.0 Fatty (change of) liver, not elsewhere classified L71.9 Rosacea, unspecified S93.401A Sprain of unspecified ligament of RIGHT ankle, init encntr Z68.35 Body mass index (BMI) 35.0-35.9, adult Office Visit 12/28/2017 3:15p [facility] Buster Corrales DO E11.65 Type 2 diabetes mellitus with hyperglycemia I10 Essential (primary) hypertension E78.2 Mixed hyperlipidemia M10.9 Gout, unspecified K76.0 Fatty (change of) liver, not elsewhere classified L71.9 Rosacea, unspecified Z68.35 Body mass index (BMI) 35.0-35.9, adult Office Visit 09/27/2017 3:00p [facility] Buster Corrales DO E11.65 Type 2 diabetes mellitus with hyperglycemia I10 Essential (primary) hypertension E78.2 Mixed hyperlipidemia M10.9 Gout, unspecified K76.0 Fatty (change of) liver, not elsewhere classified L71.9 Rosacea, unspecified Z68.35 Body mass index (BMI) 35.0-35.9, adult Office Visit 06/15/2017 8:15a [facility] Chente Oneil DO I10 Essential ( primary) hypertension E78.2 Mixed hyperlipidemia E11.65 Type 2 diabetes mellitus with hyperglycemia M10.9 Gout, unspecified K76.0 Fatty (change of) liver, not elsewhere classified L71.9 Rosacea, unspecified Office Visit 03/08/2017 11:00a [facility] Chente Oneil DO I10 Essential ( primary) hypertension E78.2 Mixed hyperlipidemia E11.65 Type 2 diabetes mellitus with hyperglycemia M10.9 Gout, unspecified K76.0 Fatty (change of) liver, not elsewhere classified L71.9 Rosacea, unspecified Office Visit 08/03/2016 10:00a [facility] Chente Oneil DO I10 Essential ( primary) hypertension E78.2 Mixed hyperlipidemia E11.65 Type 2 diabetes mellitus with hyperglycemia M10.9 Gout, unspecified K76.0 Fatty (change of) liver, not elsewhere classified L71.9 Rosacea, unspecified Office Visit 03/16/2016 9:30a [facility] Chente Oneil DO K76.0 Fatty ( change of) liver, not elsewhere classified E11.65 Type 2 diabetes mellitus with hyperglycemia E78.2 Mixed hyperlipidemia I10 Essential (primary) hypertension M10.9 Gout, unspecified L71.9 Rosacea, unspecified Office Visit 10/27/2015 2:45p [facility] Chente Oneil DO E11.65 Type 2 diabetes mellitus with hyperglycemia E78.2 Mixed hyperlipidemia I10 Essential (primary) hypertension M10.9 Gout, unspecified L71.9 Rosacea, unspecified Office Visit 07/28/2015 3:00p [facility] Chente Oneil DO E11.65 Type 2 diabetes mellitus with hyperglycemia E78.2 Mixed hyperlipidemia I10 Essential (primary) hypertension M10.9 Gout, unspecified Office Visit 03/12/2015 1:45p [facility] Chente Oneil DO 250.02 Diabetes Mellitus W/O Compl Type II Or Unspec Type Uncontrol 272.2 Hyperlipidemia Mixed 401.1 Hypertension Benign 274.9 Gout Unspec Office Visit 10/16/2014 2:00p [facility] Chente Oneil DO V70.0 Exam (Adult ) General Medical Routine AT Health Care Facility 250.02 Diabetes Mellitus W/O Compl Type II Or Unspec Type Uncontrol 272.2 Hyperlipidemia Mixed 401.1 Hypertension Benign 274.9 Gout Unspec Office Visit 05/22/2014 Kathi, 250.02 Diabetes 9:45a Meredith Navarro DO Mellitus W/O Compl Type II Or Unspec Type Uncontrol 272.2 Hyperlipidemia Mixed 401.1 Hypertension Benign 575.8 Gallbladder Disorders Other Spec 278.00 Obesity Unspec Office Visit 05/15/2014 Kathi, 250.02 Diabetes 2:30p Meredith Navarro DO Mellitus W/O Compl Type II Or Unspec Type Uncontrol 272.2 Hyperlipidemia Mixed Office Visit 04/18/2014 Kathi, 401.1 Hypertension 9:30a Meredith Navarro DO Benign 250.02 Diabetes Mellitus W/O Compl Type II Or Unspec Type Uncontrol 272.2 Hyperlipidemia Mixed 278.01 Obesity Morbid V15.81 History Personal Noncompliance W/ Medical Treatment Office Visit 04/04/2014 Kathi, 250.02 Diabetes 9:00a Meredith Navarro DO Mellitus W/O Compl Type II Or Unspec Type Uncontrol 401.1 Hypertension Benign 278.01 Obesity Morbid 274.9 Gout Unspec 272.2 Hyperlipidemia Mixed V15.81 History Personal Noncompliance W/ Medical Treatment Office Visit 09/27/2012 Kathi, 250.02 Diabetes 8:15a Meredith Navarro DO Mellitus W/O Compl Type II Or Unspec Type Uncontrol 401.1 Hypertension Benign 278.01 Obesity Morbid 782.3 Edema 691.8 Dermatitis Atopic & Related Conditions Other 274.9 Gout Unspec Office 08/29/2012 Kathi, 272.0 Hypercholesterolemia Visit 4:00p Meredith Navarro DO Pure 276.1 Hyposmolality & Or Hyponatremia 789.01 Pain Abdominal RIGHT Upper Quadrant 250.00 Diabetes Mellitus W/O Compl Type II Or Unspec Controlled 571.8 Liver Disease Chronic Nonalcoholic Other Office Visit 08/28/2012 Kathi, 789.01 Pain Abdominal 10:00a Meredith Navarro DO RIGHT Upper Quadrant 250.00 Diabetes Mellitus W/O Compl Type II Or Unspec Controlled 401.1 Hypertension Benign 272.0 Hypercholesterolemia Pure 274.9 Gout Unspec 790.4 Transaminase Or Lactic Acid Dehydrogenase Elevation Nonspec Office Visit 08/21/2012 11:30a [facility] Shaji Smallwood, 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 401.1 Hypertension Benign 272.0 Hypercholesterolemia Pure 278.00 Obesity Unspec Office Visit 06/06/2012 Kathi, 401.1 Hypertension 4:15p Meredith Navarro DO Benign 250.02 Diabetes Mellitus W/O Compl Type II Or Unspec Type Uncontrol 790.4 Transaminase Or Lactic Acid Dehydrogenase Elevation Nonspec Office Visit 04/04/2012 Kathi, 250.00 Diabetes 2:00p Meredith Navarro DO Mellitus W/O Compl Type II Or Unspec Controlled 401.1 Hypertension Benign 719.47 Pain Joint Ankle & Foot Office Visit 04/03/2012 11:00a Freedom Sims MD 278.00 Obesity Unspec 250.00 Diabetes Mellitus W/O Compl Type II Or Unspec Controlled V72.83 Examination Preoperative Other Spec 272.0 Hypercholesterolemia Pure 401.1 Hypertension Benign 274.9 Gout Unspec 716.88 Arthropathy Other Spec Sites Office Visit 12/01/2011 2:30p Shaji Saleem, KATH 250.00 Diabetes Mellitus W/O Compl Type II Or Unspec Controlled 272.0 Hypercholesterolemia Pure 278.00 Obesity Unspec Office Visit 04/07/2011 12:00p Freedom Sims MD 250.02 Diabetes Mellitus W/O Compl Type II Or Unspec Type Uncontrol Office Visit 03/03/2011 1:30p Shaji Saleem NP 250.02 Diabetes Mellitus W/O Compl Type II Or Unspec Type Uncontrol 272.0 Hypercholesterolemia Pure 791.0 Proteinuria Office Visit 01/13/2011 12:45p Freedom Sims MD 250.02 Diabetes Mellitus W/O Compl Type II Or Unspec Type Uncontrol 278.00 Obesity Unspec 272.0 Hypercholesterolemia Pure 401.1 Hypertension Benign 274.9 Gout Unspec Office Visit 12/31/2010 9:15a Freedom Sims MD 250.02 Diabetes Mellitus W/O Compl Type II Or Unspec Type Uncontrol 278.00 Obesity Unspec 272.0 Hypercholesterolemia Pure 401.1 Hypertension Benign Office Visit 12/17/2010 12:00p Freedom Sims MD 250.02 Diabetes Mellitus W/O Compl Type II Or Unspec Type Uncontrol 278.00 Obesity Unspec 272.0 Hypercholesterolemia Pure 401.1 Hypertension Benign Office Visit 12/16/2010 10:30a Shaji Saleem NP 250.02 Diabetes Mellitus W/O Compl Type II Or Unspec Type Uncontrol 278.00 Obesity Unspec 272.0 Hypercholesterolemia Pure Office Visit 12/07/2010 9:30a Freedom Sims 272.0 Hypercholesterolemia Pure V70.0 Exam (Adult) General Medical Routine AT Health Care Facility V77.1 Screening Diabetes Mellitus 791.5 Glycosuria 278.00 Obesity Unspec V72.19 Other Examination Of Ears And Hearing 530.11 Esophagitis Reflux V72.0 Examination Eyes & Vision 602.8 Prostate Disorder Spec Other V69.2 Sexual Behavior High Risk 250.00 Diabetes Mellitus W/O Compl Type II Or Unspec Controlled 788.69 Urinary Abnormaltiy Other Office Visit 11/11/2010 2:00p Jeff Trotter Kimberly, 461.9 Sinusitis Acute SWAGE TOOLSETTER Unspec 386.11 Vertigo Benign Paroxysmal Position Office Visit 11/01/2010 12:30p Freedom Sims MD 535.00 Gastritis Acute W/O Hemorrhage 461.1 Sinusitis Acute Frontal Office Visit 10/29/2010 3:00p Freedom Sims MD 994.6 Effects Of Motion Sickness Office Visit 10/13/2010 4:30p Freedom Sims MD 386.30 Labyrinthitis Unspec 381.01 Otitis Media Serous Acute Office Visit 08/04/2010 4:30p Freedom Sims MD 466.0 Bronchitis Acute 272.0 Hypercholesterolemia Pure 274.9 Gout Unspec Office Visit 03/02/2010 3:15p Freedom Sims MD 274.9 Gout Unspec 845.09 Sprains & Strains Ankle Other Office Visit 12/30/2009 10:00a Arpan Flowers 601.9 Prostatitis Unspec Sandip Sepulveda MD Office Visit 12/04/2009 11:45a Freedom Sims 601.9 Prostatitis Unspec MD 278.00 Obesity Unspec 716.88 Arthropathy Other Spec Sites Office Visit 11/24/2009 9:30a Freedom Sims MD V77.91 Screening For Lipoid Disorders V77.1 Screening Diabetes Mellitus 601.9 Prostatitis Unspec 272.1 Hypertriglyceridemia Pure 401.1 Hypertension Benign Office Visit 10/23/2009 9:15a Freedom Sims MD 401.1 Hypertension Benign V70.0 Exam (Adult) General Medical Routine AT Health Care Facility 278.00 Obesity Unspec V58.64 [facility] (Current)Use Of Non-Steroid Antiinflammatories 695.3 Rosacea V69.2 Sexual Behavior High Risk 788.1 Dysuria 599.70 Hematuria, Unspecified Office Visit 05/28/2009 4:15p Michelle John MD 782.1 Rash & Other Nonspec Skin Eruption Office Visit 01/06/2009 2:00p Michelle John MD 462 Pharyngitis Acute 401.1 Hypertension Benign Office Visit 01/10/2007 3:30p Michelle John MD 401.1 Hypertension Benign Office Visit 12/27/2006 10:45a Freedom Sims MD 401.1 Hypertension Benign V41.7 Sexual Function Problem Office Visit 11/22/2006 12:15p Michelle John MD 401.1 Hypertension Benign Office Visit 10/02/2006 1:45p Michelle John MD 401.1 Hypertension Benign Office Visit 08/05/2006 12:45p Michelle John MD 462 Pharyngitis Acute 401.1 Hypertension Benign Office Visit 05/08/2006 10:45a Michelle John MD 401.1 Hypertension Benign Office Visit 12/09/2005 11:30a Michelle John MD 401.1 Hypertension Benign Office Visit 10/27/2005 2:00p Michelle John MD V70.0 Exam (Adult ) General Medical Routine AT Health Care Facility 401.1 Hypertension Benign 786.51 Pain Precordial 477.9 Rhinitis Allergic Cause Unspec Office Visit 10/13/2005 3:15p Michelle John MD 401.1 Hypertension Benign 786.51 Pain Precordial Plan of Treatment 07/12/2018 - Buster Corrales, DOE11.65 Type 2 diabetes mellitus with hyperglycemiaNew Labs:Hemoglobin A1c, Ordered: 07/12/18ollow up:Get fasting lab work done in 3 months, then see me a few days later.I10 Essential (primary) hypertensionNew Labs:CBC with Auto Diff-fcmg, Ordered: 07/12/18Basic (BMP), Ordered: 07/12/18TSH, Ordered: 07/12/18Lipid Treatment, Ordered: 07/12/18M10.9 Gout, unspecifiedNew Labs:Uric Acid, Ordered: 07/12/18E78.2 Mixed [id number] Fatty (change of) liver, not elsewhere [id number] Rosacea, oovdfdsxqpeF15.35 Body mass index (BMI) 35.0-35.9, adult
[2018-07-29 19:13] VITALS: BP 136/91
[2018-07-29] MEDS ORDERED: Acyclovir* 200 MG CAP PO ONE (19:19)
--- NOTE | 2018-07-29 19:24 | UC ---
Skin Complaint HPI - HPI Summary HPI Summary: The patient is a 38-year-old male with an achy rash to his right shoulder times about 48 hours. Patient is a diabetic. He denies any fever or chills. - History of Current Complaint Chief Complaint: UCRas Time Seen by Provider: 07/29/18 19:06 Stated Complaint: RASH/POSSIBLE SHINGLES Hx Obtained From: Patient Onset/Duration: Gradual Onset, Lasting Days Timing: Constant Onset Severity: Mild Current Severity: Mild Pain Intensity: 3 Pain Scale Used: 0-10 Numeric Location: Discrete Character: Swelling, Pain, Raised Aggravating Factor(s): Nothing Alleviating Factor(s): Nothing Associated Signs & Symptoms: Positive: Rash - Allergy/Home Medications Allergies/Adverse Reactions: Allergies Allergy/AdvReac Type Severity Reaction Status Date / Time No Known Allergies Allergy Verified 07/29/18 19:06 PMH/Surg Hx/FS Hx/Imm Hx Previously Healthy: Yes Endocrine History: Diabetes, Dyslipidemia Cardiovascular History: Hypertension - Surgical History Surgical History: Yes Surgery Procedure, Year, and Place: Ankle surgery, 2012. TESTICULAR TORSION 20 YRS AGO - Family History Known Family History: Positive: Cardiac Disease - Social History Alcohol Use: Occasionally Substance Use Type: None Smoking Status (MU): Former Smoker Have You Smoked in the Last Year: No When Did the Patient Quit Smoking/Using Tobacco: 2007 Review of Systems All Other Systems Reviewed And Are Negative: Yes Constitutional: Positive: Negative Skin: Positive: Rash Eyes: Positive: Negative ENT: Positive: Negative Respiratory: Positive: Negative Cardiovascular: Positive: Negative Gastrointestinal: Positive: Negative Genitourinary: Positive: Negative Motor: Positive: Negative Neurovascular: Positive: Negative Musculoskeletal: Positive: Negative Neurological: Positive: Negative Psychological: Positive: Negative Physical Exam Triage Information Reviewed: Yes Appearance: Well-Appearing, No Pain Distress, Well-Nourished Vital Signs: Initial Vital Signs Temp 97.8 F 07/29/18 19:07 Pulse 75 07/29/18 19:07 Resp 16 07/29/18 19:07 BP 136/91 07/29/18 19:07 Pulse Ox 100 07/29/18 19:07 Vital Signs Reviewed: Yes Eyes: Positive: Conjunctiva Clear ENT: Positive: Hearing grossly normal. Negative: Nasal congestion, Nasal drainage, Trismus, Muffled voice, Hoarse voice Neck: Positive: Supple, Nontender Respiratory: Positive: Lungs clear, Normal breath sounds, No respiratory distress, No accessory muscle use Cardiovascular: Positive: RRR, No Murmur Musculoskeletal: Positive: ROM Intact, No Edema Neurological: Positive: Alert Psychological Exam: Normal Skin Exam: Other - see image Images Front/Back of Body, Lg ([place]): 1 - veiscles 2 - new crop of vesicles Course/Dx - Diagnoses Provider Diagnosis: Shingles Discharge - Sign-Out/Discharge Documenting (check all that apply): Patient Departure All imaging exams completed and their final reports reviewed: No Studies - Discharge Plan Condition: Stable Disposition: HOME Prescriptions: Famciclovir(NF) [Famvir(NF)] 500 mg PO TID #21 tab Patient Education Materials: Asif (ED) Referrals: Buster Corrales DO [Primary Care Provider] - If Needed - Billing Disposition and Condition Condition: STABLE Disposition: Home
== END 2018-07-29 19:30 | disposition home or self-care (01) ==
LOC: UCCORT 18:42
DX: Z87.891 Personal history of nicotine dependence (principal); E11.9 Type 2 diabetes mellitus without complications; I10 Essential (primary) hypertension; B02.9 Zoster without complications
CPT/HCPCS: 99212; A9270-GY; G0463